=== PATIENT | male | born 1960 | race Caucasian/White ===

== ENCOUNTER 2016-06-14 10:33 | Emergency (ER) | payer BC ==
[~2016-06-14] VITALS: Ht 190.5 cm; Wt 132.9 kg
[~2016-06-14 10:33] MED LIST: CLEOCIN300 MG PO; COUMADIN6 MG PO; DOXYCYCLINE HY100 MG PO; JANUVIA100 MG PO; LISINOPRIL10 MG PO; LISINOPRIL5 MG PO; METFORMIN HCL1000 MG PO; NOVOLOG PE100 UNITS/ SC; ROCEPHIN1 GM/50 ML IV; WARFARIN SODIUM2 MG PO
[2016-06-14 11:33] LABS: CHLORIDE 97 mEq/L (99-109); POTASSIUM 4.2 mEq/L (3.7-5.4); SODIUM 133 mEq/L (136-147)
[2016-06-14 11:35] LABS: GLUCOSE 305 mg/dL (70-99)
[2016-06-14 11:36] LABS: ANION GAP 12 MEQ/L (2-14)
[2016-06-14 11:39] LABS: GFR ESTIMATE (CALCULATED) > 59 mL/min/
[2016-06-14 11:40] LABS: UREA NITROGEN (BUN) 18 mg/dL (9-23)
[2016-06-14] MEDS ORDERED: COUMADIN6 MG PO (11:54)
[2016-06-14] MEDS ORDERED: COUMADIN4 MG PO (11:55)
[2016-06-14] MEDS ORDERED: METFORMIN HCL850 MG PO (12:50)
[2016-06-14] MEDS ORDERED: DOXYCYCLINE HY100 MG PO (12:50)
[2016-06-14 13:17] VITALS: BP 141/80
== END 2016-06-14 13:24 | disposition home or self-care (01) ==
LOC: RME 10:33 → EME 10:33 → RME 13:24
PROVIDERS: Physician Assistant
DX: L03.031 Cellulitis of right toe (principal); E11.65 Type 2 diabetes mellitus with hyperglycemia; I10 Essential (primary) hypertension; Z95.2 Presence of prosthetic heart valve; Z79.01 Long term (current) use of anticoagulants; Z79.84 Long term (current) use of oral hypoglycemic drugs
CPT/HCPCS: 73630; 80048; 85610; 99281; 99284; J7040; J7050

== ENCOUNTER 2016-07-01 16:27 | Inpatient (IN) | payer BC ==
[~2016-07-01] VITALS: Ht 193 cm; Wt 125.3 kg
[~2016-07-01 16:27] MED LIST changes: +COUMADIN4 MG PO; +METFORMIN HCL850 MG PO
[2016-07-01 18:10] VITALS: BP 143/77
[2016-07-01 19:24] VITALS: BP 168/52
[2016-07-01 19:32] LABS: INTER. NORMALIZED RATIO 2.9; PROTHROMBIN TIME 30.3 (9.2-11.2)
[2016-07-01 23:34] VITALS: BP 146/80
[2016-07-02 04:08] VITALS: BP 155/80
[2016-07-02 07:28] LABS: EOSINOPHIL COUNT 0.2 K/uL (0-0.3); HEMATOCRIT 29.4 % (38.0-50.0); IMMATURE GRANULOCYTE (%) 0.2 % (0.0-0.7); LYMPHOCYTE COUNT 1.8 K/uL (1.0-2.8); MCH 26.8 PG (29.0-34.0); MCHC 32.3 G/DL (30.0-36.0); MCV 83.1 FL (86-99); MEAN PLAT.VOLUME 9.5 uM^3 (9.0-12.4); MONOCYTE COUNT 0.9 K/uL (0-0.8); NEUTROPHIL (%) 69.2 % (45-76); NEUTROPHIL COUNT 6.6 K/uL (1.8-6.4); PLATELET COUNT 411 K/uL (156-360); RBC DIS.WIDTH-CV 13.4 % (11.8-14.6); RBC DIS.WIDTH-SD 41.3 % (39-53); RED BLOOD COUNT 3.54 M/uL (4.00-5.50); WHITE BLOOD COUNT 9.5 K/uL (4.1-10.2)
[2016-07-02 07:48] LABS: ANION GAP 7 MEQ/L (2-14); CHLORIDE 101 MEQ/L (99-109); GFR ESTIMATE (CALCULATED) > 59 mL/min/; GLUCOSE 249 mg/dL (70-99); POTASSIUM 4.2 MEQ/L (3.7-5.4); SAMPLE HEMOLYSIS CHECK 0; SAMPLE ICTERIC CHECK 0; SAMPLE LIPEMIA CHECK 0; SODIUM 135 MEQ/L (136-147); UREA NITROGEN (BUN) 12 mg/dL (9-23)
[2016-07-02 07:49] LABS: INTER. NORMALIZED RATIO 2.8; PROTHROMBIN TIME 29.5 (9.2-11.2); PTT 55.9 (25-32)
[2016-07-02 08:20] VITALS: BP 165/86
[2016-07-02 11:05] VITALS: BP 146/82
[2016-07-02 16:10] VITALS: BP 161/89
[2016-07-02 19:30] VITALS: BP 134/75
[2016-07-02 23:00] VITALS: BP 130/74
[2016-07-03 04:47] VITALS: BP 159/84
[2016-07-03 05:12] LABS: EOSINOPHIL (%) 2.1 % (0-5); EOSINOPHIL COUNT 0.2 K/uL (0-0.3); HEMATOCRIT 31.4 % (38.0-50.0); IMMATURE GRANULOCYTE (%) 0.3 % (0.0-0.7); LYMPHOCYTE COUNT 1.9 K/uL (1.0-2.8); MCHC 33.1 G/DL (30.0-36.0); MCV 84.4 FL (86-99); MEAN PLAT.VOLUME 9.8 uM^3 (9.0-12.4); MONOCYTE (%) 8.5 % (3-12); MONOCYTE COUNT 0.8 K/uL (0-0.8); NEUTROPHIL (%) 68.2 % (45-76); NEUTROPHIL COUNT 6.1 K/uL (1.8-6.4); PLATELET COUNT 411 K/uL (156-360); RBC DIS.WIDTH-CV 13.5 % (11.8-14.6); RBC DIS.WIDTH-SD 41.1 % (39-53); RED BLOOD COUNT 3.72 M/uL (4.00-5.50)
[2016-07-03 05:23] LABS: PTT 49.3 (25-32)
[2016-07-03 05:38] LABS: ANION GAP 9 MEQ/L (2-14); CHLORIDE 102 MEQ/L (99-109); GFR ESTIMATE (CALCULATED) > 59 mL/min/; GLUCOSE 235 mg/dL (70-99); SAMPLE HEMOLYSIS CHECK 0; SAMPLE ICTERIC CHECK 0; SAMPLE LIPEMIA CHECK 0; SODIUM 136 MEQ/L (136-147); UREA NITROGEN (BUN) 13 mg/dL (9-23)
[2016-07-03 07:45] VITALS: BP 142/89
[2016-07-03 16:12] VITALS: BP 149/88
[2016-07-03 20:33] VITALS: BP 132/78
[2016-07-03 23:44] VITALS: BP 148/80
[2016-07-04 07:31] LABS: INTER. NORMALIZED RATIO 1.3; PROTHROMBIN TIME 13.3 (9.2-11.2)
[2016-07-04 08:09] VITALS: BP 180/96
[2016-07-04 11:38] VITALS: BP 180/93
[2016-07-04 15:15] LABS: POINT-OF-CARE METER ID UU13113675
[2016-07-04 15:53] VITALS: BP 167/85
[2016-07-04 20:07] LABS: INTER. NORMALIZED RATIO 1.3; PROTHROMBIN TIME 12.9 (9.2-11.2); PTT 31.1 (25-32)
[2016-07-04 20:30] VITALS: BP 144/88
[2016-07-05 00:36] VITALS: BP 144/64
[2016-07-05 02:43] LABS: INTER. NORMALIZED RATIO 1.2; PROTHROMBIN TIME 12.3 (9.2-11.2)
[2016-07-05 02:44] LABS: PTT 47.9 (25-32)
[2016-07-05 04:10] VITALS: BP 152/85
[2016-07-05 07:45] VITALS: BP 162/93
[2016-07-05 08:52] LABS: EOSINOPHIL (%) 0.9 % (0-5); EOSINOPHIL COUNT 0.1 K/uL (0-0.3); HEMATOCRIT 32.4 % (38.0-50.0); IMMATURE GRANULOCYTE (%) 0.2 % (0.0-0.7); LYMPHOCYTE COUNT 1.6 K/uL (1.0-2.8); MCH 27.8 PG (29.0-34.0); MCV 84.2 FL (86-99); MONOCYTE (%) 7.9 % (3-12); MONOCYTE COUNT 0.9 K/uL (0-0.8); NEUTROPHIL (%) 76.8 % (45-76); NEUTROPHIL COUNT 8.9 K/uL (1.8-6.4); PLATELET COUNT 440 K/uL (156-360); RBC DIS.WIDTH-CV 13.6 % (11.8-14.6); RBC DIS.WIDTH-SD 41.3 % (39-53); RED BLOOD COUNT 3.85 M/uL (4.00-5.50); WHITE BLOOD COUNT 11.6 K/uL (4.1-10.2)
[2016-07-05 09:10] LABS: ANION GAP 10 MEQ/L (2-14); CHLORIDE 103 MEQ/L (99-109); GFR ESTIMATE (CALCULATED) > 59 mL/min/; GLUCOSE 226 mg/dL (70-99); POTASSIUM 3.8 MEQ/L (3.7-5.4); SAMPLE HEMOLYSIS CHECK 0; SAMPLE ICTERIC CHECK 0; SAMPLE LIPEMIA CHECK 0; SODIUM 138 MEQ/L (136-147); UREA NITROGEN (BUN) 12 mg/dL (9-23)
[2016-07-05 15:58] LABS: INTER. NORMALIZED RATIO 1.2; PROTHROMBIN TIME 12.7 (9.2-11.2); PTT 41.2 (25-32)
[2016-07-05 16:00] VITALS: BP 158/85
[2016-07-05 22:46] LABS: INTER. NORMALIZED RATIO 1.2; PTT 45.2 (25-32)
[2016-07-06] VITALS: BP 140/69
[2016-07-06 06:06] LABS: INTER. NORMALIZED RATIO 1.3; PROTHROMBIN TIME 12.8 (9.2-11.2)
[2016-07-06 07:50] VITALS: BP 178/88
[2016-07-06 16:00] VITALS: BP 130/81
[2016-07-07] VITALS: BP 154/72
[2016-07-07 06:46] VITALS: BP 156/87
[2016-07-07 08:13] LABS: INTER. NORMALIZED RATIO 1.6; PROTHROMBIN TIME 16.4 (9.2-11.2)
[2016-07-07 14:34] VITALS: BP 166/84
[2016-07-07 19:25] LABS: VANCOMYCIN, TROUGH 48.8 MCG/ML (10-20)
[2016-07-07 20:05] VITALS: BP 156/75
[2016-07-08] VITALS: BP 154/72
[2016-07-08 04:07] VITALS: BP 141/66
[2016-07-08 07:11] LABS: EOSINOPHIL (%) 0.9 % (0-5); EOSINOPHIL COUNT 0.1 K/uL (0-0.3); HEMATOCRIT 29.9 % (38.0-50.0); IMMATURE GRANULOCYTE (%) 0.3 % (0.0-0.7); LYMPHOCYTE COUNT 1.2 K/uL (1.0-2.8); MCH 27.4 PG (29.0-34.0); MCHC 32.4 G/DL (30.0-36.0); MCV 84.5 FL (86-99); MONOCYTE (%) 9.1 % (3-12); NEUTROPHIL (%) 78.2 % (45-76); NEUTROPHIL COUNT 8.2 K/uL (1.8-6.4); PLATELET COUNT 386 K/uL (156-360); RBC DIS.WIDTH-CV 14.4 % (11.8-14.6); RBC DIS.WIDTH-SD 43.8 % (39-53); RED BLOOD COUNT 3.54 M/uL (4.00-5.50); WHITE BLOOD COUNT 10.5 K/uL (4.1-10.2)
[2016-07-08 07:15] LABS: INTER. NORMALIZED RATIO 2.4; PTT 75.3 (25-32)
[2016-07-08 07:26] LABS: PROTHROMBIN TIME 25.2 (9.2-11.2)
[2016-07-08 07:55] LABS: ALKALINE PHOSPHATASE 62 IU/L (3-129); ANION GAP 10 MEQ/L (2-14); CHLORIDE 106 MEQ/L (99-109); GFR ESTIMATE (CALCULATED) 24 mL/min/; GLUCOSE 223 mg/dL (70-99); POTASSIUM 3.4 MEQ/L (3.7-5.4); SAMPLE HEMOLYSIS CHECK 0; SAMPLE ICTERIC CHECK 0; SAMPLE LIPEMIA CHECK 0; SODIUM 141 MEQ/L (136-147); TOTAL BILIRUBIN 0.3 MG/DL (0.0-1.0); UREA NITROGEN (BUN) 21 mg/dL (9-23)
[2016-07-08 08:59] VITALS: BP 158/85
[2016-07-08 11:23] LABS: POINT-OF-CARE USER ID STWLMB34
[2016-07-08 16:57] LABS: POINT-OF-CARE USER ID STWLMB34
[2016-07-08 20:00] VITALS: BP 135/78
[2016-07-08 20:29] LABS: ANION GAP 9 MEQ/L (2-14); CHLORIDE 102 MEQ/L (99-109); POTASSIUM 3.6 MEQ/L (3.7-5.4); SAMPLE HEMOLYSIS CHECK 0; SAMPLE ICTERIC CHECK 0; SAMPLE LIPEMIA CHECK 0; SODIUM 136 MEQ/L (136-147)
[2016-07-08 20:34] LABS: GFR ESTIMATE (CALCULATED) 21 mL/min/; GLUCOSE 208 mg/dL (70-99); UREA NITROGEN (BUN) 23 mg/dL (9-23)
[2016-07-08 23:47] VITALS: BP 168/80
[2016-07-09 04:10] LABS: EOSINOPHIL (%) 1.9 % (0-5); EOSINOPHIL COUNT 0.2 K/uL (0-0.3); HEMATOCRIT 29.2 % (38.0-50.0); IMMATURE GRANULOCYTE (%) 0.2 % (0.0-0.7); IMMATURE GRANULOCYTE COUNT 0.2 K/uL; LYMPHOCYTE COUNT 1.4 K/uL (1.0-2.8); MCH 27.4 PG (29.0-34.0); MCHC 32.9 G/DL (30.0-36.0); MCV 83.4 FL (86-99); MEAN PLAT.VOLUME 9.9 uM^3 (9.0-12.4); MONOCYTE COUNT 0.9 K/uL (0-0.8); NEUTROPHIL (%) 73.8 % (45-76); NEUTROPHIL COUNT 7.1 K/uL (1.8-6.4); PLATELET COUNT 394 K/uL (156-360); RBC DIS.WIDTH-CV 14.1 % (11.8-14.6); RBC DIS.WIDTH-SD 40.8 % (39-53); WHITE BLOOD COUNT 9.6 K/uL (4.1-10.2)
[2016-07-09 04:22] LABS: CHLORIDE 106 mEq/L (99-109); POTASSIUM 3.9 mEq/L (3.7-5.4); SODIUM 138 mEq/L (136-147)
[2016-07-09 04:23] LABS: GLUCOSE 218 mg/dL (70-99); INTER. NORMALIZED RATIO 3.6
[2016-07-09 04:25] LABS: ANION GAP 10 MEQ/L (2-14)
[2016-07-09 04:27] LABS: GFR ESTIMATE (CALCULATED) 19 mL/min/
[2016-07-09 04:28] LABS: PROTHROMBIN TIME 38.2 (9.2-11.2); UREA NITROGEN (BUN) 26 mg/dL (9-23)
[2016-07-09 08:35] VITALS: BP 130/72
[2016-07-09 15:13] VITALS: BP 140/67
[2016-07-10 04:30] VITALS: BP 163/79
[2016-07-10 05:30] LABS: UR CREATININE CONCENTRATION 42.5 MG/DL
[2016-07-10 07:11] LABS: INTER. NORMALIZED RATIO 3.4
[2016-07-10 07:12] LABS: ANION GAP 7 MEQ/L (2-14); CHLORIDE 104 MEQ/L (99-109); GFR ESTIMATE (CALCULATED) 19 mL/min/; GLUCOSE 210 mg/dL (70-99); SAMPLE HEMOLYSIS CHECK 0; SAMPLE ICTERIC CHECK 0; SAMPLE LIPEMIA CHECK 0; SODIUM 136 MEQ/L (136-147); UREA NITROGEN (BUN) 32 mg/dL (9-23)
[2016-07-10 08:00] VITALS: BP 153/84
[2016-07-10 15:00] VITALS: BP 151/81
[2016-07-10 16:38] LABS: POINT-OF-CARE USER ID STWLMB34
[2016-07-10 23:05] VITALS: BP 136/92
[2016-07-11 05:11] LABS: PROTHROMBIN TIME 32.1 (9.2-11.2)
[2016-07-11 05:18] LABS: CHLORIDE 107 mEq/L (99-109); POTASSIUM 4.5 mEq/L (3.7-5.4); SODIUM 138 mEq/L (136-147)
[2016-07-11 05:20] LABS: GLUCOSE 251 mg/dL (70-99)
[2016-07-11 05:22] LABS: ANION GAP 9 MEQ/L (2-14)
[2016-07-11 05:24] LABS: GFR ESTIMATE (CALCULATED) 17 mL/min/
[2016-07-11 05:25] LABS: UREA NITROGEN (BUN) 39 mg/dL (9-23)
[2016-07-11 07:54] VITALS: BP 159/90
[2016-07-11 15:31] LABS: ADD MIUA? NO; BILIRUBIN NEGATIVE; BLOOD NEGATIVE; COLOR STRAW ((YELLOW)); GLUCOSE (STRIP) 150; KETONES NEGATIVE; LEUKOCYTES NEGATIVE; NITRITE NEGATIVE; PROTEIN (STRIP) NEGATIVE; SPECIFIC GRAVITY 1.005 (1.000-1.030); UROBILINOGEN 0.2 MG/DL (0.2-1.0)
[2016-07-11 15:43] VITALS: BP 167/94
[2016-07-11 18:48] LABS: UR CREATININE CONCENTRATION 47.3 MG/DL
[2016-07-11 23:35] VITALS: BP 140/69
[2016-07-12 07:01] LABS: INTER. NORMALIZED RATIO 2.5; PROTHROMBIN TIME 25.8 (9.2-11.2)
[2016-07-12 07:14] LABS: C3 COMPLEMENT 149 MG/DL (58-170); C4 COMPLEMENT 47 MG/DL (10-40)
[2016-07-12 07:17] LABS: ANION GAP 11 MEQ/L (2-14); CHLORIDE 107 MEQ/L (99-109); GFR ESTIMATE (CALCULATED) 18 mL/min/; GLUCOSE 209 mg/dL (70-99); POTASSIUM 4.2 MEQ/L (3.7-5.4); SAMPLE HEMOLYSIS CHECK 0; SAMPLE ICTERIC CHECK 0; SAMPLE LIPEMIA CHECK 0; SODIUM 139 MEQ/L (136-147); UREA NITROGEN (BUN) 40 mg/dL (9-23)
[2016-07-12 08:37] VITALS: BP 171/88
[2016-07-12 12:53] LABS: HEMATOCRIT 32.2 % (38.0-50.0); MCH 26.7 PG (29.0-34.0); MCHC 32.3 G/DL (30.0-36.0); MCV 82.8 FL (86-99); PLATELET COUNT 446 K/uL (156-360); RBC DIS.WIDTH-CV 14.7 % (11.8-14.6); RBC DIS.WIDTH-SD 44.1 % (39-53); RED BLOOD COUNT 3.89 M/uL (4.00-5.50); WHITE BLOOD COUNT 8.5 K/uL (4.1-10.2)
[2016-07-12 17:03] VITALS: BP 160/84
[2016-07-12 23:23] VITALS: BP 166/80
[2016-07-13 08:57] LABS: INTER. NORMALIZED RATIO 1.9; PROTHROMBIN TIME 19.3 (9.2-11.2)
[2016-07-13 09:44] VITALS: BP 163/84
[2016-07-13 09:56] LABS: ANION GAP 9 MEQ/L (2-14); CHLORIDE 105 MEQ/L (99-109); GFR ESTIMATE (CALCULATED) 17 mL/min/; GLUCOSE 239 mg/dL (70-99); POTASSIUM 4.7 MEQ/L (3.7-5.4); SAMPLE HEMOLYSIS CHECK 0; SAMPLE ICTERIC CHECK 0; SAMPLE LIPEMIA CHECK 0; SODIUM 138 MEQ/L (136-147); UREA NITROGEN (BUN) 48 mg/dL (9-23)
[2016-07-13 15:55] VITALS: BP 160/89
[2016-07-14] VITALS: BP 148/85
[2016-07-14 03:26] LABS: BASOPHIL COUNT 0.1 K/uL (0-0.1); EOSINOPHIL (%) 3.9 % (0-5); EOSINOPHIL COUNT 0.3 K/uL (0-0.3); HEMATOCRIT 29.7 % (38.0-50.0); IMMATURE GRANULOCYTE (%) 0.2 % (0.0-0.7); IMMATURE GRANULOCYTE COUNT 0.2 K/uL; LYMPHOCYTE COUNT 1.8 K/uL (1.0-2.8); MCH 27.3 PG (29.0-34.0); MCHC 33.3 G/DL (30.0-36.0); MEAN PLAT.VOLUME 9.5 uM^3 (9.0-12.4); MONOCYTE (%) 8.2 % (3-12); MONOCYTE COUNT 0.7 K/uL (0-0.8); NEUTROPHIL COUNT 5.4 K/uL (1.8-6.4); PLATELET COUNT 447 K/uL (156-360); RBC DIS.WIDTH-CV 14.6 % (11.8-14.6); RBC DIS.WIDTH-SD 41.8 % (39-53); RED BLOOD COUNT 3.62 M/uL (4.00-5.50); WHITE BLOOD COUNT 8.3 K/uL (4.1-10.2)
[2016-07-14 03:39] LABS: INTER. NORMALIZED RATIO 1.6; PROTHROMBIN TIME 16.7 (9.2-11.2)
[2016-07-14 03:41] LABS: CHLORIDE 105 mEq/L (99-109); POTASSIUM 4.7 mEq/L (3.7-5.4)
[2016-07-14 03:42] LABS: SODIUM 137 mEq/L (136-147)
[2016-07-14 03:43] LABS: GLUCOSE 232 mg/dL (70-99)
[2016-07-14 03:45] LABS: ANION GAP 11 MEQ/L (2-14)
[2016-07-14 03:47] LABS: GFR ESTIMATE (CALCULATED) 16 mL/min/
[2016-07-14 03:48] LABS: UREA NITROGEN (BUN) 54 mg/dL (9-23)
[2016-07-14 08:14] VITALS: BP 158/89
[2016-07-14 12:50] VITALS: BP 108/62
[2016-07-14 16:19] VITALS: BP 166/88
[2016-07-14 16:58] LABS: INTER. NORMALIZED RATIO 1.3; PROTHROMBIN TIME 13.7 (9.2-11.2); PTT 43.8 (25-32)
[2016-07-15 01:52] VITALS: BP 153/84
[2016-07-15 03:50] LABS: CHLORIDE 104 mEq/L (99-109)
[2016-07-15 03:51] LABS: POTASSIUM 4.8 mEq/L (3.7-5.4); SODIUM 136 mEq/L (136-147)
[2016-07-15 03:52] LABS: GLUCOSE 223 mg/dL (70-99)
[2016-07-15 03:54] LABS: ANION GAP 9 MEQ/L (2-14)
[2016-07-15 03:56] LABS: GFR ESTIMATE (CALCULATED) 16 mL/min/
[2016-07-15 03:57] LABS: UREA NITROGEN (BUN) 62 mg/dL (9-23)
[2016-07-15 07:15] VITALS: BP 148/81
[2016-07-15 07:47] LABS: INTER. NORMALIZED RATIO 1.2; PROTHROMBIN TIME 12.7 (9.2-11.2); PTT 33.2 (25-32)
[2016-07-15 10:26] VITALS: BP 160/84
[2016-07-15 16:55] VITALS: BP 171/84
[2016-07-15 19:57] VITALS: BP 157/90
[2016-07-15 20:45] LABS: Neutrophil Cytoplasmic Aby Negative (Negative)
[2016-07-15 23:41] VITALS: BP 139/79
[2016-07-16 00:45] VITALS: BP 123/74
[2016-07-16 05:41] LABS: BASOPHIL COUNT 0.1 K/uL (0-0.1); EOSINOPHIL (%) 2.5 % (0-5); EOSINOPHIL COUNT 0.2 K/uL (0-0.3); HEMATOCRIT 32.6 % (38.0-50.0); IMMATURE GRANULOCYTE (%) 0.2 % (0.0-0.7); LYMPHOCYTE COUNT 1.8 K/uL (1.0-2.8); MCH 26.3 PG (29.0-34.0); MCHC 31.6 G/DL (30.0-36.0); MCV 83.2 FL (86-99); MEAN PLAT.VOLUME 9.8 uM^3 (9.0-12.4); MONOCYTE (%) 8.6 % (3-12); MONOCYTE COUNT 0.8 K/uL (0-0.8); NEUTROPHIL (%) 68.7 % (45-76); NEUTROPHIL COUNT 6.2 K/uL (1.8-6.4); PLATELET COUNT 466 K/uL (156-360); RBC DIS.WIDTH-CV 14.7 % (11.8-14.6); RBC DIS.WIDTH-SD 44.6 % (39-53); RED BLOOD COUNT 3.92 M/uL (4.00-5.50)
[2016-07-16 05:50] LABS: INTER. NORMALIZED RATIO 1.2; PROTHROMBIN TIME 12.1 (9.2-11.2)
[2016-07-16 06:11] LABS: ANION GAP 12 MEQ/L (2-14); CHLORIDE 100 MEQ/L (99-109); GFR ESTIMATE (CALCULATED) 17 mL/min/; GLUCOSE 214 mg/dL (70-99); POTASSIUM 4.9 MEQ/L (3.7-5.4); SAMPLE HEMOLYSIS CHECK 0; SAMPLE ICTERIC CHECK 0; SAMPLE LIPEMIA CHECK 0; SODIUM 136 MEQ/L (136-147); UREA NITROGEN (BUN) 61 mg/dL (9-23)
[2016-07-16 08:00] VITALS: BP 170/90
[2016-07-16 09:25] LABS: PTT 28.9 (25-32)
[2016-07-16 16:00] VITALS: BP 147/86
[2016-07-16 17:16] LABS: POINT-OF-CARE USER ID STWLMB34
[2016-07-16 23:45] VITALS: BP 123/74
[2016-07-17 06:48] LABS: HEMATOCRIT 30.2 % (38.0-50.0); MCH 27.5 PG (29.0-34.0); MCHC 32.8 G/DL (30.0-36.0); MCV 83.9 FL (86-99); PLATELET COUNT 460 K/uL (156-360); RBC DIS.WIDTH-SD 46.2 % (39-53)
[2016-07-17 06:56] LABS: INTER. NORMALIZED RATIO 1.1; PROTHROMBIN TIME 11.4 (9.2-11.2); PTT 32.8 (25-32)
[2016-07-17 07:10] LABS: ANION GAP 10 MEQ/L (2-14); CHLORIDE 100 MEQ/L (99-109); GFR ESTIMATE (CALCULATED) 15 mL/min/; GLUCOSE 265 mg/dL (70-99); POTASSIUM 5.3 MEQ/L (3.7-5.4); SAMPLE HEMOLYSIS CHECK 0; SAMPLE ICTERIC CHECK 0; SAMPLE LIPEMIA CHECK 0; SODIUM 134 MEQ/L (136-147); UREA NITROGEN (BUN) 66 mg/dL (9-23)
[2016-07-17 07:44] VITALS: BP 139/82
[2016-07-18] VITALS: BP 132/77
[2016-07-18 07:51] VITALS: BP 145/84
[2016-07-18 09:43] LABS: INTER. NORMALIZED RATIO 1.2; PROTHROMBIN TIME 12.5 (9.2-11.2); PTT 46.8 (25-32)
[2016-07-18 09:50] LABS: EOSINOPHIL (%) 2.5 % (0-5); EOSINOPHIL COUNT 0.2 K/uL (0-0.3); HEMATOCRIT 31.8 % (38.0-50.0); IMMATURE GRANULOCYTE (%) 0.3 % (0.0-0.7); LYMPHOCYTE COUNT 1.6 K/uL (1.0-2.8); MCH 26.1 PG (29.0-34.0); MCHC 31.1 G/DL (30.0-36.0); MCV 83.7 FL (86-99); MONOCYTE (%) 8.2 % (3-12); MONOCYTE COUNT 0.7 K/uL (0-0.8); NEUTROPHIL (%) 68.7 % (45-76); NEUTROPHIL COUNT 5.5 K/uL (1.8-6.4); PLATELET COUNT 513 K/uL (156-360); RBC DIS.WIDTH-CV 15.1 % (11.8-14.6); RBC DIS.WIDTH-SD 46.1 % (39-53)
[2016-07-18 10:00] LABS: ANION GAP 11 MEQ/L (2-14); CHLORIDE 100 MEQ/L (99-109); GFR ESTIMATE (CALCULATED) 17 mL/min/; GLUCOSE 235 mg/dL (70-99); POTASSIUM 4.9 MEQ/L (3.7-5.4); SAMPLE HEMOLYSIS CHECK 0; SAMPLE ICTERIC CHECK 0; SAMPLE LIPEMIA CHECK 0; SODIUM 137 MEQ/L (136-147); UREA NITROGEN (BUN) 63 mg/dL (9-23)
[2016-07-18 15:17] VITALS: BP 145/77
[2016-07-19] VITALS: BP 131/73
[2016-07-19 06:06] LABS: INTER. NORMALIZED RATIO 1.4; PROTHROMBIN TIME 14.2 (9.2-11.2)
[2016-07-19 06:17] LABS: ANION GAP 10 MEQ/L (2-14); CHLORIDE 100 MEQ/L (99-109); GFR ESTIMATE (CALCULATED) 17 mL/min/; GLUCOSE 215 mg/dL (70-99); POTASSIUM 5.2 MEQ/L (3.7-5.4); SAMPLE HEMOLYSIS CHECK 0; SAMPLE ICTERIC CHECK 0; SAMPLE LIPEMIA CHECK 0; SODIUM 135 MEQ/L (136-147); UREA NITROGEN (BUN) 65 mg/dL (9-23)
[2016-07-19 08:05] VITALS: BP 140/75
[2016-07-19 17:25] VITALS: BP 132/70
[2016-07-19 21:29] LABS: POINT-OF-CARE USER ID AHSUCEG
[2016-07-19 23:34] VITALS: BP 144/87
[2016-07-20 02:51] LABS: INTER. NORMALIZED RATIO 1.6; PROTHROMBIN TIME 16.5 (9.2-11.2)
[2016-07-20 02:53] LABS: CHLORIDE 103 mEq/L (99-109); POTASSIUM 4.8 mEq/L (3.7-5.4); SODIUM 138 mEq/L (136-147)
[2016-07-20 03:20] LABS: ANION GAP 14 MEQ/L (2-14)
[2016-07-20 03:22] LABS: GFR ESTIMATE (CALCULATED) 18 mL/min/
[2016-07-20 03:23] LABS: GLUCOSE 199 mg/dL (70-99)
[2016-07-20 03:28] LABS: UREA NITROGEN (BUN) 62 mg/dL (9-23)
[2016-07-20 08:00] VITALS: BP 135/74
[2016-07-20] MEDS ORDERED: TYLENOL REGULA325 MG PO (12:35)
[2016-07-20] MEDS ORDERED: AMLODIPINE BESY10 MG PO (12:36)
[2016-07-20] MEDS ORDERED: LABETALOL HCL100 MG PO (12:36)
[2016-07-20] MEDS ORDERED: NOVOLOG PE100 UNITS/ SC (12:36)
[2016-07-20] MEDS ORDERED: COUMADIN10 MG PO (12:37)
== END 2016-07-20 15:14 | disposition home or self-care (01) | DRG 616 ==
LOC: 2EAST 16:27 → 2EASTP 18:07
PROVIDERS: Family Medicine; Internal Medicine; Internal Medicine Nephrology; Physician Assistant Surgical; Surgery
PROC: 0HDMXZZ Extraction of Right Foot Skin, External Approach (ICD-10-PCS; principal; 2016-07-03)
PROC: 0Y6P0Z0 Detachment at Right 1st Toe, Complete, Open Approach (ICD-10-PCS; 2016-07-04)
PROC: 0TB13ZX Excision of Left Kidney, Percutaneous Approach, Diagnostic (ICD-10-PCS; 2016-07-15)
DX: E11.69 Type 2 diabetes mellitus with other specified complication (principal); A48.0 Gas gangrene; E11.52 Type 2 diabetes mellitus with diabetic peripheral angiopathy with gangrene; M86.171 Other acute osteomyelitis, right ankle and foot; E66.01 Morbid (severe) obesity due to excess calories; Z68.35 Body mass index [BMI] 35.0-35.9, adult; L97.519 Non-pressure chronic ulcer of other part of right foot with unspecified severity; E11.621 Type 2 diabetes mellitus with foot ulcer; E11.65 Type 2 diabetes mellitus with hyperglycemia; L03.031 Cellulitis of right toe; S91.104A Unspecified open wound of right lesser toe(s) without damage to nail, initial encounter; S91.102A Unspecified open wound of left great toe without damage to nail, initial encounter; S91.105A Unspecified open wound of left lesser toe(s) without damage to nail, initial encounter; I48.91 Unspecified atrial fibrillation; E87.6 Hypokalemia; Z95.2 Presence of prosthetic heart valve; E88.09 Other disorders of plasma-protein metabolism, not elsewhere classified; D64.9 Anemia, unspecified; I11.9 Hypertensive heart disease without heart failure; N17.0 Acute kidney failure with tubular necrosis; T36.8X5A Adverse effect of other systemic antibiotics, initial encounter; E11.21 Type 2 diabetes mellitus with diabetic nephropathy
CPT/HCPCS: 76770; 77012; 80048; 80053; 80069; 80202; 81003; 82565; 82570; 82948; 83605; 84156; 84300; 85025; 85027; 85610; 85730; 86021 90; 86038; 86160; 88305; 88305 90; 88311; 88313 90; 88346 90; 88348 90; 89190; 93005; J1815; J2250; J2543; J2795; J3010; J3370; J7040; J7050; S0020

== ENCOUNTER 2016-11-08 12:26 | Inpatient (IN) | payer BC ==
[~2016-11-08] VITALS: Ht 190.5 cm; Wt 122.0 kg
[~2016-11-08 12:26] MED LIST changes: +AMLODIPINE BESY10 MG PO; +COUMADIN10 MG PO; +LABETALOL HCL100 MG PO; +TYLENOL REGULA325 MG PO
[2016-11-08 14:57] LABS: HEMATOCRIT 31.6 % (38.0-50.0); MCV 84.5 FL (86-99); MEAN PLAT.VOLUME 9.4 uM^3 (9.0-12.4); PLATELET COUNT 394 K/uL (156-360); RBC DIS.WIDTH-SD 40.7 % (39-53); RED BLOOD COUNT 3.74 M/uL (4.00-5.50); WHITE BLOOD COUNT 19.4 K/uL (4.1-10.2)
[2016-11-08 15:07] LABS: CHLORIDE 97 mEq/L (99-109)
[2016-11-08 15:08] LABS: POTASSIUM 4.3 mEq/L (3.7-5.4); SODIUM 131 mEq/L (136-147)
[2016-11-08 15:10] LABS: GLUCOSE 255 mg/dL (70-99)
[2016-11-08 15:11] LABS: ANION GAP 8 MEQ/L (2-14)
[2016-11-08 15:12] LABS: TOTAL BILIRUBIN 0.5 mg/dL (0.0-1.0)
[2016-11-08 15:13] LABS: ALKALINE PHOSPHATASE 107 IU/L (3-129); GFR ESTIMATE (CALCULATED) > 59 mL/min/
[2016-11-08 15:15] LABS: UREA NITROGEN (BUN) 22 mg/dL (9-23)
[2016-11-08 17:05] LABS: C-REACTIVE PROTEIN 228.6 MG/L (0-10)
[2016-11-08] MEDS ORDERED: COUMADIN2 MG PO ×2 (17:49→17:50)
[2016-11-08] MEDS ORDERED: NOVOLOG PE100 UNITS/ SC (17:50)
[2016-11-08 19:49] LABS: PROTHROMBIN TIME 20.3 (9.2-11.2)
[2016-11-08 20:32] VITALS: BP 136/78
[2016-11-08 21:00] VITALS: BP 135/78
[2016-11-08 23:45] VITALS: BP 139/66
[2016-11-09 06:53] LABS: BASOPHIL COUNT 0.1 K/uL (0-0.1); EOSINOPHIL (%) 1.9 % (0-5); EOSINOPHIL COUNT 0.3 K/uL (0-0.3); HEMATOCRIT 27.7 % (38.0-50.0); IMMATURE GRANULOCYTE (%) 0.6 % (0.0-0.7); IMMATURE GRANULOCYTE COUNT 0.1 K/uL; INSTRUMENT ABS NEUTROPHIL CT 12.3 K/uL; LYMPHOCYTE COUNT 1.4 K/uL (1.0-2.8); MCH 27.8 PG (29.0-34.0); MCHC 32.5 G/DL (30.0-36.0); MCV 85.5 FL (86-99); MONOCYTE (%) 9.3 % (3-12); MONOCYTE COUNT 1.5 K/uL (0-0.8); NEUTROPHIL (%) 78.6 % (45-76); NEUTROPHIL COUNT 12.3 K/uL (1.8-6.4); PLATELET COUNT 361 K/uL (156-360); RBC DIS.WIDTH-CV 13.2 % (11.8-14.6); RBC DIS.WIDTH-SD 40.8 % (39-53); RED BLOOD COUNT 3.24 M/uL (4.00-5.50); WHITE BLOOD COUNT 15.6 K/uL (4.1-10.2)
[2016-11-09 07:08] LABS: POINT-OF-CARE METER ID UU14149397
[2016-11-09 07:16] LABS: ANION GAP 7 MEQ/L (2-14); CHLORIDE 100 MEQ/L (99-109); GFR ESTIMATE (CALCULATED) > 59 mL/min/; GLUCOSE 233 mg/dL (70-99); POTASSIUM 4.4 MEQ/L (3.7-5.4); SAMPLE HEMOLYSIS CHECK 0; SAMPLE ICTERIC CHECK 0; SAMPLE LIPEMIA CHECK 0; SODIUM 132 MEQ/L (136-147); UREA NITROGEN (BUN) 18 mg/dL (9-23)
[2016-11-09 07:19] LABS: PROTHROMBIN TIME 20.4 (9.2-11.2)
[2016-11-09 07:52] VITALS: BP 177/83
[2016-11-09 08:47] VITALS: BP 152/82
[2016-11-09 11:45] LABS: POINT-OF-CARE METER ID UU14149397
[2016-11-09 12:51] VITALS: BP 124/69
[2016-11-09 16:23] VITALS: BP 145/80
[2016-11-09 21:18] VITALS: BP 105/53
[2016-11-09 21:22] LABS: POINT-OF-CARE METER ID UU14188577
[2016-11-10 06:30] LABS: POINT-OF-CARE METER ID UU14149397
[2016-11-10 06:45] LABS: BASOPHIL COUNT 0.1 K/uL (0-0.1); EOSINOPHIL (%) 2.3 % (0-5); EOSINOPHIL COUNT 0.4 K/uL (0-0.3); HEMATOCRIT 27.7 % (38.0-50.0); IMMATURE GRANULOCYTE (%) 0.6 % (0.0-0.7); IMMATURE GRANULOCYTE COUNT 0.1 K/uL; INSTRUMENT ABS NEUTROPHIL CT 13.4 K/uL; LYMPHOCYTE COUNT 1.3 K/uL (1.0-2.8); MCH 27.4 PG (29.0-34.0); MCHC 32.5 G/DL (30.0-36.0); MCV 84.5 FL (86-99); MEAN PLAT.VOLUME 9.9 uM^3 (9.0-12.4); MONOCYTE (%) 9.2 % (3-12); MONOCYTE COUNT 1.5 K/uL (0-0.8); NEUTROPHIL (%) 79.5 % (45-76); NEUTROPHIL COUNT 13.4 K/uL (1.8-6.4); PLATELET COUNT 385 K/uL (156-360); RBC DIS.WIDTH-SD 40.3 % (39-53); RED BLOOD COUNT 3.28 M/uL (4.00-5.50); WHITE BLOOD COUNT 16.8 K/uL (4.1-10.2)
[2016-11-10 07:13] LABS: INTER. NORMALIZED RATIO 2.3; PROTHROMBIN TIME 23.9 (9.2-11.2)
[2016-11-10 07:17] VITALS: BP 160/78
[2016-11-10 07:18] LABS: Estimated Average Glucose 269 mg/dL (70-123)
[2016-11-10 07:28] LABS: ANION GAP 9 MEQ/L (2-14); CHLORIDE 99 MEQ/L (99-109); GFR ESTIMATE (CALCULATED) > 59 mL/min/; GLUCOSE 216 mg/dL (70-99); POTASSIUM 4.5 MEQ/L (3.7-5.4); SAMPLE HEMOLYSIS CHECK 0; SAMPLE ICTERIC CHECK 0; SAMPLE LIPEMIA CHECK 0; SODIUM 133 MEQ/L (136-147); UREA NITROGEN (BUN) 13 mg/dL (9-23)
[2016-11-10 12:05] LABS: POINT-OF-CARE METER ID UU14188577
[2016-11-10 15:55] VITALS: BP 178/85
[2016-11-10 16:26] LABS: POINT-OF-CARE METER ID UU14188577
[2016-11-10 23:27] VITALS: BP 135/78
[2016-11-11 06:58] LABS: BASOPHIL COUNT 0.1 K/uL (0-0.1); EOSINOPHIL (%) 3.2 % (0-5); EOSINOPHIL COUNT 0.6 K/uL (0-0.3); HEMATOCRIT 27.9 % (38.0-50.0); IMMATURE GRANULOCYTE (%) 0.9 % (0.0-0.7); IMMATURE GRANULOCYTE COUNT 0.2 K/uL; INSTRUMENT ABS NEUTROPHIL CT 12.9 K/uL; LYMPHOCYTE COUNT 1.7 K/uL (1.0-2.8); MCH 28.4 PG (29.0-34.0); MCHC 33.3 G/DL (30.0-36.0); MCV 85.3 FL (86-99); MEAN PLAT.VOLUME 9.8 uM^3 (9.0-12.4); MONOCYTE COUNT 1.5 K/uL (0-0.8); NEUTROPHIL (%) 76.3 % (45-76); NEUTROPHIL COUNT 12.9 K/uL (1.8-6.4); PLATELET COUNT 391 K/uL (156-360); RBC DIS.WIDTH-CV 13.1 % (11.8-14.6); RBC DIS.WIDTH-SD 40.8 % (39-53); RED BLOOD COUNT 3.27 M/uL (4.00-5.50)
[2016-11-11 07:20] LABS: INTER. NORMALIZED RATIO 2.3; PROTHROMBIN TIME 24.4 (9.2-11.2); PTT 48.6 (25-32)
[2016-11-11 07:23] LABS: ANION GAP 7 MEQ/L (2-14); CHLORIDE 99 MEQ/L (99-109); GFR ESTIMATE (CALCULATED) > 59 mL/min/; GLUCOSE 238 mg/dL (70-99); POTASSIUM 4.8 MEQ/L (3.7-5.4); SAMPLE HEMOLYSIS CHECK 0; SAMPLE ICTERIC CHECK 0; SAMPLE LIPEMIA CHECK 0; SODIUM 132 MEQ/L (136-147); UREA NITROGEN (BUN) 13 mg/dL (9-23)
[2016-11-11 07:36] LABS: POINT-OF-CARE METER ID UU14149397
[2016-11-11 08:26] VITALS: BP 176/87
[2016-11-11 16:07] VITALS: BP 142/82
[2016-11-12 00:13] VITALS: BP 164/82
[2016-11-12 06:14] LABS: POINT-OF-CARE METER ID UU14188577
[2016-11-12 06:59] LABS: INTER. NORMALIZED RATIO 1.2; PTT 37.8 (25-32)
[2016-11-12 07:02] LABS: PROTHROMBIN TIME 12.5 (9.2-11.2)
[2016-11-12 08:20] VITALS: BP 162/84
[2016-11-12 15:20] LABS: POINT-OF-CARE METER ID UU13113675; POINT-OF-CARE USER ID 515036437
[2016-11-12 16:40] VITALS: BP 118/82
[2016-11-12 17:01] LABS: POINT-OF-CARE METER ID UU14149397
[2016-11-12 20:19] VITALS: BP 136/84
[2016-11-12 22:28] LABS: POINT-OF-CARE METER ID UU14188577
[2016-11-13 00:03] VITALS: BP 136/80
[2016-11-13 06:51] LABS: POINT-OF-CARE METER ID UU14188577
[2016-11-13 08:01] VITALS: BP 138/82
[2016-11-13 09:04] LABS: HEMATOCRIT 29.7 % (38.0-50.0); MCH 27.6 PG (29.0-34.0); MCHC 31.3 G/DL (30.0-36.0); MCV 88.1 FL (86-99); MEAN PLAT.VOLUME 10.1 uM^3 (9.0-12.4); PLATELET COUNT 451 K/uL (156-360); RBC DIS.WIDTH-CV 13.1 % (11.8-14.6); RBC DIS.WIDTH-SD 42.1 % (39-53); RED BLOOD COUNT 3.37 M/uL (4.00-5.50); WHITE BLOOD COUNT 14.9 K/uL (4.1-10.2)
[2016-11-13 09:24] LABS: ANION GAP 9 MEQ/L (2-14); CHLORIDE 97 MEQ/L (99-109); POTASSIUM 4.4 MEQ/L (3.7-5.4); SAMPLE HEMOLYSIS CHECK 0; SAMPLE ICTERIC CHECK 0; SAMPLE LIPEMIA CHECK 0; SODIUM 132 MEQ/L (136-147); TOTAL BILIRUBIN 0.3 MG/DL (0.0-1.0)
[2016-11-13 09:30] LABS: ALKALINE PHOSPHATASE 90 IU/L (3-129); GFR ESTIMATE (CALCULATED) > 59 mL/min/; GLUCOSE 244 mg/dL (70-99); UREA NITROGEN (BUN) 19 mg/dL (9-23)
[2016-11-13 09:32] LABS: INTER. NORMALIZED RATIO 1.3
[2016-11-13 11:20] LABS: POINT-OF-CARE METER ID UU14188577
[2016-11-13 16:36] VITALS: BP 138/84
[2016-11-13 16:54] LABS: POINT-OF-CARE METER ID UU14149397
[2016-11-13 22:03] LABS: POINT-OF-CARE METER ID UU14188577
[2016-11-13 23:25] VITALS: BP 132/73
[2016-11-14 04:31] LABS: BASOPHIL COUNT 0.1 K/uL (0-0.1); EOSINOPHIL (%) 4.6 % (0-5); EOSINOPHIL COUNT 0.6 K/uL (0-0.3); HEMATOCRIT 28.9 % (38.0-50.0); IMMATURE GRANULOCYTE (%) 2.9 % (0.0-0.7); IMMATURE GRANULOCYTE COUNT 0.4 K/uL; LYMPHOCYTE COUNT 1.6 K/uL (1.0-2.8); MCH 27.2 PG (29.0-34.0); MCHC 32.2 G/DL (30.0-36.0); MCV 84.5 FL (86-99); MEAN PLAT.VOLUME 9.3 uM^3 (9.0-12.4); MONOCYTE COUNT 1.2 K/uL (0-0.8); NEUTROPHIL (%) 70.6 % (45-76); PLATELET COUNT 429 K/uL (156-360); RBC DIS.WIDTH-SD 39.7 % (39-53); RED BLOOD COUNT 3.42 M/uL (4.00-5.50); WHITE BLOOD COUNT 12.8 K/uL (4.1-10.2)
[2016-11-14 04:44] LABS: CHLORIDE 100 mEq/L (99-109); INTER. NORMALIZED RATIO 1.5; POTASSIUM 4.4 mEq/L (3.7-5.4); PROTHROMBIN TIME 15.8 (9.2-11.2); SODIUM 134 mEq/L (136-147)
[2016-11-14 04:46] LABS: GLUCOSE 235 mg/dL (70-99)
[2016-11-14 04:47] LABS: ANION GAP 9 MEQ/L (2-14)
[2016-11-14 04:49] LABS: GFR ESTIMATE (CALCULATED) > 59 mL/min/
[2016-11-14 04:50] LABS: UREA NITROGEN (BUN) 17 mg/dL (9-23)
[2016-11-14 08:12] VITALS: BP 122/64
[2016-11-14 16:26] LABS: POINT-OF-CARE METER ID UU14149397
[2016-11-14 16:28] VITALS: BP 108/78
[2016-11-14 23:29] VITALS: BP 171/82
[2016-11-15 06:47] LABS: BASOPHIL COUNT 0.1 K/uL (0-0.1); EOSINOPHIL (%) 4.3 % (0-5); EOSINOPHIL COUNT 0.6 K/uL (0-0.3); HEMATOCRIT 28.1 % (38.0-50.0); IMMATURE GRANULOCYTE (%) 4.1 % (0.0-0.7); IMMATURE GRANULOCYTE COUNT 0.6 K/uL; INSTRUMENT ABS NEUTROPHIL CT 9.3 K/uL; MCH 28.1 PG (29.0-34.0); MCHC 33.1 G/DL (30.0-36.0); MCV 84.9 FL (86-99); MEAN PLAT.VOLUME 9.4 uM^3 (9.0-12.4); MONOCYTE (%) 8.8 % (3-12); MONOCYTE COUNT 1.2 K/uL (0-0.8); NEUTROPHIL (%) 67.5 % (45-76); NEUTROPHIL COUNT 9.3 K/uL (1.8-6.4); PLATELET COUNT 455 K/uL (156-360); RBC DIS.WIDTH-CV 13.1 % (11.8-14.6); RBC DIS.WIDTH-SD 40.6 % (39-53); RED BLOOD COUNT 3.31 M/uL (4.00-5.50); WHITE BLOOD COUNT 13.7 K/uL (4.1-10.2)
[2016-11-15 07:03] LABS: INTER. NORMALIZED RATIO 1.9; PTT 66.1 (25-32)
[2016-11-15 07:56] VITALS: BP 128/70
[2016-11-15 08:21] LABS: ANION GAP 10 MEQ/L (2-14); CHLORIDE 99 MEQ/L (99-109); GFR ESTIMATE (CALCULATED) > 59 mL/min/; GLUCOSE 223 mg/dL (70-99); POTASSIUM 4.6 MEQ/L (3.7-5.4); SAMPLE HEMOLYSIS CHECK 0; SAMPLE ICTERIC CHECK 0; SAMPLE LIPEMIA CHECK 0; SODIUM 134 MEQ/L (136-147); UREA NITROGEN (BUN) 16 mg/dL (9-23)
[2016-11-15 11:49] LABS: POINT-OF-CARE METER ID UU14188577
[2016-11-15] MEDS ORDERED: LINEZOLID600 MG PO (12:23)
== END 2016-11-15 14:00 | disposition home or self-care (01) | DRG 464 ==
LOC: EXP 12:26 → EME 12:26 → EDOF 18:21 → 3EAST 18:21
PROVIDERS: Family Medicine; Nurse Practitioner Family; Physician Assistant Surgical
DX: M86.171 Other acute osteomyelitis, right ankle and foot (principal); L03.115 Cellulitis of right lower limb; L97.509 Non-pressure chronic ulcer of other part of unspecified foot with unspecified severity; N17.9 Acute kidney failure, unspecified; S92.333A Displaced fracture of third metatarsal bone, unspecified foot, initial encounter for closed fracture; E87.1 Hypo-osmolality and hyponatremia; E11.621 Type 2 diabetes mellitus with foot ulcer; E11.52 Type 2 diabetes mellitus with diabetic peripheral angiopathy with gangrene; E11.40 Type 2 diabetes mellitus with diabetic neuropathy, unspecified; E11.69 Type 2 diabetes mellitus with other specified complication; E11.65 Type 2 diabetes mellitus with hyperglycemia; E11.628 Type 2 diabetes mellitus with other skin complications; E11.22 Type 2 diabetes mellitus with diabetic chronic kidney disease; G57.90 Unspecified mononeuropathy of unspecified lower limb; I25.10 Atherosclerotic heart disease of native coronary artery without angina pectoris; I35.9 Nonrheumatic aortic valve disorder, unspecified; T36.8X5A Adverse effect of other systemic antibiotics, initial encounter; N18.9 Chronic kidney disease, unspecified; L02.91 Cutaneous abscess, unspecified; I12.9 Hypertensive chronic kidney disease with stage 1 through stage 4 chronic kidney disease, or unspecified chronic kidney disease; E66.9 Obesity, unspecified; D64.9 Anemia, unspecified; B95.62 Methicillin resistant Staphylococcus aureus infection as the cause of diseases classified elsewhere; Z79.4 Long term (current) use of insulin; Z79.01 Long term (current) use of anticoagulants; Z95.2 Presence of prosthetic heart valve; Z68.33 Body mass index [BMI] 33.0-33.9, adult; Z86.14 Personal history of Methicillin resistant Staphylococcus aureus infection; Z83.3 Family history of diabetes mellitus
CPT/HCPCS: 71020; 73630; 73720; 80048; 80053; 82948; 83036; 83605; 85025; 85027; 85049; 85610; 85651; 85730; 86140; 87040; 87070; 87075; 87076; 87077; 87147; 87186; 87205; 88305; 99281; 99284; J0690; J0692; J0696; J1815; J2250; J2405; J3010; J3430; J7030; J7050

== ENCOUNTER 2017-01-12 13:46 | Inpatient (IN) | payer BC ==
[~2017-01-12] VITALS: Ht 190.5 cm; Wt 128.1 kg
[~2017-01-12 13:46] MED LIST changes: +COUMADIN2 MG PO; +LINEZOLID600 MG PO
[2017-01-12 16:00] VITALS: BP 140/80
[2017-01-12 20:01] VITALS: BP 138/72
[2017-01-12 20:24] LABS: INTER. NORMALIZED RATIO 2.4; PROTHROMBIN TIME 27.2 SEC (10.2-12.9)
[2017-01-12 20:27] LABS: PTT 36.8 SEC (25-37)
[2017-01-13 07:02] LABS: BASOPHIL COUNT 0.1 K/uL (0-0.1); EOSINOPHIL (%) 3.6 % (0-5); EOSINOPHIL COUNT 0.4 K/uL (0-0.3); HEMATOCRIT 27.2 % (38.0-50.0); IMMATURE GRANULOCYTE (%) 0.5 % (0.0-0.7); IMMATURE GRANULOCYTE COUNT 0.1 K/uL; INSTRUMENT ABS NEUTROPHIL CT 8.5 K/uL; LYMPHOCYTE COUNT 1.7 K/uL (1.0-2.8); MCH 28.3 PG (29.0-34.0); MCHC 32.7 G/DL (30.0-36.0); MCV 86.3 FL (86-99); MEAN PLAT.VOLUME 10.2 uM^3 (9.0-12.4); MONOCYTE (%) 9.1 % (3-12); MONOCYTE COUNT 1.1 K/uL (0-0.8); NEUTROPHIL (%) 71.9 % (45-76); NEUTROPHIL COUNT 8.5 K/uL (1.8-6.4); PLATELET COUNT 402 K/uL (156-360); RBC DIS.WIDTH-CV 18.8 % (11.8-14.6); RED BLOOD COUNT 3.15 M/uL (4.00-5.50); WHITE BLOOD COUNT 11.8 K/uL (4.1-10.2)
[2017-01-13 07:38] VITALS: BP 138/82
[2017-01-13 07:50] LABS: ANION GAP 8 MEQ/L (2-14); CHLORIDE 102 MEQ/L (99-109); GFR ESTIMATE (CALCULATED) > 59 mL/min/; GLUCOSE 228 mg/dL (70-99); POTASSIUM 4.5 MEQ/L (3.7-5.4); SAMPLE HEMOLYSIS CHECK 0; SAMPLE ICTERIC CHECK 0; SAMPLE LIPEMIA CHECK 0; SODIUM 136 MEQ/L (136-147); UREA NITROGEN (BUN) 18 mg/dL (9-23)
[2017-01-13 07:51] LABS: INTER. NORMALIZED RATIO 2.3; PROTHROMBIN TIME 26.7 SEC (10.2-12.9)
[2017-01-13 10:52] VITALS: BP 148/68
[2017-01-13 11:34] LABS: POINT-OF-CARE METER ID UU14188577
[2017-01-13 16:53] VITALS: BP 158/81
[2017-01-13 16:55] LABS: POINT-OF-CARE METER ID UU14188577
[2017-01-13 20:16] VITALS: BP 145/80
[2017-01-13 21:33] LABS: POINT-OF-CARE METER ID UU14188577
[2017-01-14] VITALS (7 sets, daily range): BP systolic 122–140; BP diastolic 68–84
[2017-01-14 04:39] LABS: INTER. NORMALIZED RATIO 1.7; PROTHROMBIN TIME 19.1 SEC (10.2-12.9)
[2017-01-14 06:13] LABS: PTT 36.6 SEC (25-37)
[2017-01-14 07:03] LABS: INTER. NORMALIZED RATIO 1.7; PROTHROMBIN TIME 18.6 SEC (10.2-12.9)
[2017-01-14 07:08] LABS: BASOPHIL COUNT 0.1 K/uL (0-0.1); EOSINOPHIL (%) 3.4 % (0-5); EOSINOPHIL COUNT 0.4 K/uL (0-0.3); HEMATOCRIT 31.6 % (38.0-50.0); IMMATURE GRANULOCYTE (%) 0.6 % (0.0-0.7); IMMATURE GRANULOCYTE COUNT 0.1 K/uL; INSTRUMENT ABS NEUTROPHIL CT 8.6 K/uL; LYMPHOCYTE COUNT 2.1 K/uL (1.0-2.8); MCH 28.8 PG (29.0-34.0); MCHC 33.2 G/DL (30.0-36.0); MCV 86.8 FL (86-99); MEAN PLAT.VOLUME 9.6 uM^3 (9.0-12.4); MONOCYTE (%) 7.5 % (3-12); MONOCYTE COUNT 0.9 K/uL (0-0.8); NEUTROPHIL (%) 70.8 % (45-76); NEUTROPHIL COUNT 8.6 K/uL (1.8-6.4); RBC DIS.WIDTH-CV 18.5 % (11.8-14.6); RBC DIS.WIDTH-SD 58.6 % (39-53); RED BLOOD COUNT 3.64 M/uL (4.00-5.50); WHITE BLOOD COUNT 12.2 K/uL (4.1-10.2)
[2017-01-14 07:09] LABS: PLATELET COUNT 528 K/uL (156-360)
[2017-01-14 07:39] LABS: PTT 121.9 SEC (25-37)
[2017-01-14 08:01] LABS: C-REACTIVE PROTEIN 84.2 MG/L (0-10)
[2017-01-14 10:36] LABS: ERTH.SED.RATE 130 MM/HR (0-20)
[2017-01-14 11:56] LABS: POINT-OF-CARE METER ID UU14117124
[2017-01-14 13:31] LABS: POINT-OF-CARE METER ID UU13113675
[2017-01-14 14:10] LABS: POINT-OF-CARE METER ID UU14117124
[2017-01-14 16:24] LABS: Estimated Average Glucose 206 mg/dL (70-123); HEMOGLOBIN A1c (GLYCOHEMOGLOB) 8.8 % HGB (Below 5.7)
[2017-01-14 21:06] LABS: POINT-OF-CARE METER ID UU14208753
[2017-01-15] VITALS: BP 128/68
[2017-01-15 06:15] LABS: BASOPHIL COUNT 0.1 K/uL (0-0.1); EOSINOPHIL (%) 3.1 % (0-5); EOSINOPHIL COUNT 0.3 K/uL (0-0.3); HEMATOCRIT 30.6 % (38.0-50.0); IMMATURE GRANULOCYTE (%) 0.6 % (0.0-0.7); IMMATURE GRANULOCYTE COUNT 0.1 K/uL; INSTRUMENT ABS NEUTROPHIL CT 7.4 K/uL; LYMPHOCYTE COUNT 1.6 K/uL (1.0-2.8); MCH 27.6 PG (29.0-34.0); MCHC 31.7 G/DL (30.0-36.0); MCV 87.2 FL (86-99); MEAN PLAT.VOLUME 9.4 uM^3 (9.0-12.4); MONOCYTE (%) 8.7 % (3-12); MONOCYTE COUNT 0.9 K/uL (0-0.8); NEUTROPHIL (%) 71.7 % (45-76); NEUTROPHIL COUNT 7.4 K/uL (1.8-6.4); PLATELET COUNT 559 K/uL (156-360); RBC DIS.WIDTH-CV 18.6 % (11.8-14.6); RBC DIS.WIDTH-SD 58.5 % (39-53); RED BLOOD COUNT 3.51 M/uL (4.00-5.50); WHITE BLOOD COUNT 10.3 K/uL (4.1-10.2)
[2017-01-15 06:41] LABS: INTER. NORMALIZED RATIO 1.5; PROTHROMBIN TIME 16.7 SEC (10.2-12.9)
[2017-01-15 06:43] LABS: ANION GAP 9 MEQ/L (2-14); CHLORIDE 100 MEQ/L (99-109); GFR ESTIMATE (CALCULATED) 56 mL/min/; GLUCOSE 176 mg/dL (70-99); PTT 31.3 SEC (25-37); SAMPLE HEMOLYSIS CHECK 0; SAMPLE ICTERIC CHECK 0; SAMPLE LIPEMIA CHECK 0; SODIUM 137 MEQ/L (136-147); UREA NITROGEN (BUN) 20 mg/dL (9-23)
[2017-01-15 07:03] LABS: POINT-OF-CARE METER ID UU14208753
[2017-01-15 07:32] VITALS: BP 120/70
[2017-01-15 11:17] VITALS: BP 120/60
[2017-01-15 12:03] LABS: POINT-OF-CARE METER ID UU14188577
[2017-01-15 15:10] VITALS: BP 120/65
[2017-01-15 17:09] LABS: POINT-OF-CARE METER ID UU14208753
[2017-01-15 20:08] VITALS: BP 132/68
[2017-01-15 21:36] LABS: POINT-OF-CARE METER ID UU14117124
[2017-01-16 05:45] LABS: BASOPHIL COUNT 0.1 K/uL (0-0.1); EOSINOPHIL (%) 3.1 % (0-5); EOSINOPHIL COUNT 0.3 K/uL (0-0.3); HEMATOCRIT 29.6 % (38.0-50.0); IMMATURE GRANULOCYTE (%) 0.8 % (0.0-0.7); IMMATURE GRANULOCYTE COUNT 0.1 K/uL; INSTRUMENT ABS NEUTROPHIL CT 5.5 K/uL; LYMPHOCYTE COUNT 1.9 K/uL (1.0-2.8); MCH 28.4 PG (29.0-34.0); MCHC 33.1 G/DL (30.0-36.0); MCV 85.8 FL (86-99); MEAN PLAT.VOLUME 9.5 uM^3 (9.0-12.4); MONOCYTE (%) 9.3 % (3-12); MONOCYTE COUNT 0.8 K/uL (0-0.8); NEUTROPHIL (%) 63.7 % (45-76); NEUTROPHIL COUNT 5.5 K/uL (1.8-6.4); PLATELET COUNT 525 K/uL (156-360); RBC DIS.WIDTH-CV 18.3 % (11.8-14.6); RBC DIS.WIDTH-SD 57.3 % (39-53); RED BLOOD COUNT 3.45 M/uL (4.00-5.50); WHITE BLOOD COUNT 8.6 K/uL (4.1-10.2)
[2017-01-16 06:03] LABS: INTER. NORMALIZED RATIO 1.8; PROTHROMBIN TIME 20.3 SEC (10.2-12.9)
[2017-01-16 06:13] LABS: ANION GAP 8 MEQ/L (2-14); CHLORIDE 99 MEQ/L (99-109); GFR ESTIMATE (CALCULATED) > 59 mL/min/; GLUCOSE 181 mg/dL (70-99); POTASSIUM 4.5 MEQ/L (3.7-5.4); SAMPLE HEMOLYSIS CHECK 0; SAMPLE ICTERIC CHECK 0; SAMPLE LIPEMIA CHECK 0; SODIUM 133 MEQ/L (136-147); UREA NITROGEN (BUN) 24 mg/dL (9-23)
[2017-01-16 08:07] VITALS: BP 124/84
[2017-01-16 16:36] VITALS: BP 122/76
[2017-01-16 16:51] LABS: POINT-OF-CARE METER ID UU14117124
[2017-01-16 19:49] VITALS: BP 122/64
[2017-01-16 20:48] LABS: POINT-OF-CARE METER ID UU14208753
[2017-01-17 03:38] LABS: INTER. NORMALIZED RATIO 2.4; PROTHROMBIN TIME 27.3 SEC (10.2-12.9)
[2017-01-17 03:46] LABS: PTT 60.2 SEC (25-37)
[2017-01-17 04:33] VITALS: BP 122/70
[2017-01-17 08:37] VITALS: BP 111/78
[2017-01-17 11:32] LABS: POINT-OF-CARE METER ID UU14208753
[2017-01-17] MEDS ORDERED: TYLENOL REGULA325 MG PO (13:32)
[2017-01-17] MEDS ORDERED: OXYCODONE HCL5 MG PO (13:33)
[2017-01-17] MEDS ORDERED: LINEZOLID600 MG PO (13:33)
== END 2017-01-17 14:21 | disposition home or self-care (01) | DRG 504 ==
LOC: 3EAST 13:46 → ENRESERV 13:47 → 3EAST 15:32
PROVIDERS: Family Medicine; Internal Medicine Infectious Disease; Surgery
PROC: 0QBN0ZZ Excision of Right Metatarsal, Open Approach (ICD-10-PCS; principal; 2017-01-14)
DX: M86.9 Osteomyelitis, unspecified (principal); L03.115 Cellulitis of right lower limb; S91.301A Unspecified open wound, right foot, initial encounter; D64.9 Anemia, unspecified; N17.9 Acute kidney failure, unspecified; E11.69 Type 2 diabetes mellitus with other specified complication; E11.42 Type 2 diabetes mellitus with diabetic polyneuropathy; E11.65 Type 2 diabetes mellitus with hyperglycemia; N10 Acute pyelonephritis; L02.611 Cutaneous abscess of right foot; E66.9 Obesity, unspecified; H54.62 Unqualified visual loss, left eye, normal vision right eye; E88.09 Other disorders of plasma-protein metabolism, not elsewhere classified; I10 Essential (primary) hypertension; H35.30 Unspecified macular degeneration; M60.9 Myositis, unspecified; B95.62 Methicillin resistant Staphylococcus aureus infection as the cause of diseases classified elsewhere; E11.628 Type 2 diabetes mellitus with other skin complications; I35.9 Nonrheumatic aortic valve disorder, unspecified; Z68.35 Body mass index [BMI] 35.0-35.9, adult; Z89.421 Acquired absence of other right toe(s); Z95.2 Presence of prosthetic heart valve; Z89.411 Acquired absence of right great toe; Z86.14 Personal history of Methicillin resistant Staphylococcus aureus infection; Z79.4 Long term (current) use of insulin; Z79.01 Long term (current) use of anticoagulants
CPT/HCPCS: 73720; 76937; 80048; 82550; 82948; 83036; 85025; 85027; 85610; 85651; 85730; 86140; 87070; 87075; 87077; 87147; 87186; 87205; A6260; J1335; J1815; J2250; J2405; J2543; J3010; J3430; J7050

== ENCOUNTER 2017-04-04 09:39 | Emergency (ER) | payer BC ==
[~2017-04-04] VITALS: Ht 190.5 cm; Wt 143.8 kg
[~2017-04-04 09:39] MED LIST changes: +OXYCODONE HCL5 MG PO
[2017-04-04] MEDS ORDERED: BACTRIM,SEPT1 TABLET PO (10:04)
[2017-04-04] MEDS ORDERED: XEROFORM PETRO1 EACH TP (10:23)
[2017-04-04 10:52] VITALS: BP 144/82
== END 2017-04-04 11:06 | disposition home or self-care (01) ==
LOC: EME 09:39
DX: E11.621 Type 2 diabetes mellitus with foot ulcer (principal); L97.519 Non-pressure chronic ulcer of other part of right foot with unspecified severity; Z79.4 Long term (current) use of insulin; Z89.411 Acquired absence of right great toe; Z89.421 Acquired absence of other right toe(s); Z86.14 Personal history of Methicillin resistant Staphylococcus aureus infection; Z95.2 Presence of prosthetic heart valve; Z79.01 Long term (current) use of anticoagulants

== ENCOUNTER → 2017-04-30 | Outpatient (CLI) | payer BC ==
[~2017-04-30] MED LIST changes: +BACTRIM,SEPT1 TABLET PO; +XEROFORM PETRO1 EACH TP
== END | disposition home or self-care (01) ==
LOC: PICC 08:47
DX: L02.611 Cutaneous abscess of right foot (principal); T81.4XXA Infection following a procedure, initial encounter
CPT/HCPCS: 76937

== ENCOUNTER 2017-05-12 13:10 | Inpatient (IN) | payer BC ==
[~2017-05-12] VITALS: Ht 191.8 cm; Wt 137.7 kg
[2017-05-12 14:53] LABS: BASOPHIL (%) 0.3 % (0-1); BASOPHIL COUNT 0.1 K/uL (0-0.1); EOSINOPHIL (%) 0.9 % (0-5); EOSINOPHIL COUNT 0.1 K/uL (0-0.3); HEMATOCRIT 26.7 % (38.0-50.0); HEMOGLOBIN 8.5 G/DL (12.5-16.6); IMMATURE GRANULOCYTE (%) 0.6 % (0.0-0.7); LYMPHOCYTE (%) 9.2 % (15-42); LYMPHOCYTE COUNT 1.4 K/uL (1.0-2.8); MCH 27.1 PG (29.0-34.0); MCHC 31.8 G/DL (30.0-36.0); MONOCYTE (%) 6.4 % (3-12); NEUTROPHIL (%) 82.6 % (45-76); NEUTROPHIL COUNT 12.7 K/uL (1.8-6.4); PLATELET COUNT 636 K/uL (156-360); RBC DIS.WIDTH-CV 15.9 % (11.8-14.6); RBC DIS.WIDTH-SD 48.3 % (39-53); RED BLOOD COUNT 3.14 M/uL (4.00-5.50); WHITE BLOOD COUNT 15.4 K/uL (4.1-10.2)
[2017-05-12 15:01] LABS: CHLORIDE 98 mEq/L (99-109); POTASSIUM 4.1 mEq/L (3.7-5.4); SODIUM 135 mEq/L (136-147)
[2017-05-12 15:03] LABS: GLUCOSE 279 mg/dL (70-99)
[2017-05-12 15:07] LABS: CREATININE 1.4 mg/dL (0.6-1.3); GFR ESTIMATE (CALCULATED) 56 mL/min/ (58.99-99999)
[2017-05-12 15:08] LABS: UREA NITROGEN (BUN) 16 mg/dL (9-23)
[2017-05-12 17:34] LABS: INTER. NORMALIZED RATIO 2.6
[2017-05-12] MEDS ORDERED: ROCEPHIN250 MG IM (20:43)
[2017-05-12] MEDS ORDERED: [UNRECOGNIZED DRUG - OTHER] IJ (20:43)
[2017-05-12] MEDS ORDERED: SHORT ACTING INSULIN (20:45)
[2017-05-12 22:08] VITALS: BP 128/69
[2017-05-13 03:42] VITALS: BP 135/76
[2017-05-13 07:00] VITALS: BP 140/78
[2017-05-13 14:45] LABS: INTER. NORMALIZED RATIO 2.2
[2017-05-13 15:05] LABS: ALBUMIN 2.3 G/DL (3.2-4.8); ALKALINE PHOSPHATASE 69 IU/L (3-129); ALT (GPT) 14 IU/L (3-49); AST (GOT) 14 IU/L (2-34); CHLORIDE 99 MEQ/L (99-109); CREATININE 1.1 MG/DL (0.6-1.3); GFR ESTIMATE (CALCULATED) > 59 mL/min/ (58.99-99999); GLUCOSE 200 mg/dL (70-99); SODIUM 131 MEQ/L (136-147); TOTAL BILIRUBIN 0.3 MG/DL (0.0-1.0); TOTAL PROTEIN 5.7 G/DL (6.4-8.3); UREA NITROGEN (BUN) 13 mg/dL (9-23)
[2017-05-13 15:29] LABS: Estimated Average Glucose 266 mg/dL (70-123)
[2017-05-13 15:59] LABS: HEMOGLOBIN A1c (GLYCOHEMOGLOB) 10.9 % HGB (Below 5.7)
[2017-05-13 16:08] VITALS: BP 130/70
[2017-05-13 22:00] VITALS: BP 124/80
[2017-05-14 06:16] LABS: HEMATOCRIT 26.8 % (38.0-50.0); HEMOGLOBIN 8.4 G/DL (12.5-16.6); MCH 26.8 PG (29.0-34.0); MCHC 31.3 G/DL (30.0-36.0); MCV 85.4 FL (86-99); PLATELET COUNT 628 K/uL (156-360); RBC DIS.WIDTH-CV 15.8 % (11.8-14.6); RBC DIS.WIDTH-SD 48.5 % (39-53); RED BLOOD COUNT 3.14 M/uL (4.00-5.50); WHITE BLOOD COUNT 10.1 K/uL (4.1-10.2)
[2017-05-14 06:20] LABS: INTER. NORMALIZED RATIO 1.9
[2017-05-14 06:39] LABS: CHLORIDE 100 MEQ/L (99-109); CREATININE 1.1 MG/DL (0.6-1.3); GFR ESTIMATE (CALCULATED) > 59 mL/min/ (58.99-99999); GLUCOSE 177 mg/dL (70-99); POTASSIUM 4.6 MEQ/L (3.7-5.4); SODIUM 135 MEQ/L (136-147); UREA NITROGEN (BUN) 14 mg/dL (9-23)
[2017-05-14 08:05] VITALS: BP 130/88
[2017-05-14 15:50] VITALS: BP 130/78
[2017-05-14 23:00] VITALS: BP 125/80
[2017-05-15 00:52] LABS: PTT 40.6 SEC (25-37)
[2017-05-15 05:12] LABS: INTER. NORMALIZED RATIO 1.6
[2017-05-15 06:56] LABS: HEMATOCRIT 25.5 % (38.0-50.0); MCH 26.3 PG (29.0-34.0); MCHC 31.4 G/DL (30.0-36.0); MCV 83.9 FL (86-99); PLATELET COUNT 557 K/uL (156-360); RBC DIS.WIDTH-CV 15.7 % (11.8-14.6); RED BLOOD COUNT 3.04 M/uL (4.00-5.50); WHITE BLOOD COUNT 11.4 K/uL (4.1-10.2)
[2017-05-15 06:57] VITALS: BP 132/76
[2017-05-15 11:09] VITALS: BP 137/83
[2017-05-15 15:51] VITALS: BP 144/66
[2017-05-15 19:45] VITALS: BP 130/62
[2017-05-16] VITALS (19 sets, daily range): BP systolic 131–180; BP diastolic 60–110
[2017-05-16 04:37] LABS: INTER. NORMALIZED RATIO 1.4
[2017-05-16 04:39] LABS: PTT 34.8 SEC (25-37)
[2017-05-16 04:49] LABS: BASOPHIL (%) 0.4 % (0-1); EOSINOPHIL (%) 0.4 % (0-5); HEMATOCRIT 20.7 % (38.0-50.0); HEMOGLOBIN 6.5 G/DL (12.5-16.6); IMMATURE GRANULOCYTE (%) 0.4 % (0.0-0.7); LYMPHOCYTE (%) 11.9 % (15-42); LYMPHOCYTE COUNT 0.9 K/uL (1.0-2.8); MCH 26.5 PG (29.0-34.0); MCHC 31.4 G/DL (30.0-36.0); MCV 84.5 FL (86-99); MONOCYTE (%) 11.6 % (3-12); MONOCYTE COUNT 0.9 K/uL (0-0.8); NEUTROPHIL (%) 75.3 % (45-76); NEUTROPHIL COUNT 5.5 K/uL (1.8-6.4); PLATELET COUNT 416 K/uL (156-360); RBC DIS.WIDTH-CV 15.9 % (11.8-14.6); RBC DIS.WIDTH-SD 48.5 % (39-53); RED BLOOD COUNT 2.45 M/uL (4.00-5.50); WHITE BLOOD COUNT 7.3 K/uL (4.1-10.2)
[2017-05-16 04:59] LABS: CHLORIDE 99 mEq/L (99-109); SODIUM 134 mEq/L (136-147)
[2017-05-16 05:01] LABS: GLUCOSE 155 mg/dL (70-99)
[2017-05-16 05:04] LABS: CREATININE 1.1 mg/dL (0.6-1.3); GFR ESTIMATE (CALCULATED) > 59 mL/min/ (58.99-99999)
[2017-05-16 05:05] LABS: UREA NITROGEN (BUN) 10 mg/dL (9-23)
[2017-05-16 13:28] LABS: TROP-I INTERPRETATION NEGATIVE; TROPONIN-I 0.02 ng/mL (0.0-0.30)
[2017-05-16 16:17] LABS: HEMATOCRIT 29.8 % (38.0-50.0); HEMOGLOBIN 9.6 G/DL (12.5-16.6); MCH 27.3 PG (29.0-34.0); MCHC 32.2 G/DL (30.0-36.0); MCV 84.7 FL (86-99); PLATELET COUNT 435 K/uL (156-360); RBC DIS.WIDTH-CV 15.4 % (11.8-14.6); RBC DIS.WIDTH-SD 46.7 % (39-53); RED BLOOD COUNT 3.52 M/uL (4.00-5.50); WHITE BLOOD COUNT 9.4 K/uL (4.1-10.2)
[2017-05-16 20:52] LABS: TROP-I INTERPRETATION NEGATIVE; TROPONIN-I 0.04 ng/mL (0.0-0.30)
[2017-05-17] VITALS (19 sets, daily range): BP systolic 136–177; BP diastolic 80–111
[2017-05-17 04:33] LABS: BASOPHIL (%) 0.2 % (0-1); EOSINOPHIL (%) 0.1 % (0-5); HEMATOCRIT 27.8 % (38.0-50.0); HEMOGLOBIN 9.1 G/DL (12.5-16.6); IMMATURE GRANULOCYTE (%) 0.4 % (0.0-0.7); LYMPHOCYTE (%) 8.7 % (15-42); LYMPHOCYTE COUNT 1.1 K/uL (1.0-2.8); MCH 27.3 PG (29.0-34.0); MCHC 32.7 G/DL (30.0-36.0); MCV 83.5 FL (86-99); MONOCYTE (%) 8.4 % (3-12); NEUTROPHIL (%) 82.2 % (45-76); NEUTROPHIL COUNT 10.2 K/uL (1.8-6.4); PLATELET COUNT 416 K/uL (156-360); RBC DIS.WIDTH-CV 15.3 % (11.8-14.6); RBC DIS.WIDTH-SD 46.2 % (39-53); RED BLOOD COUNT 3.33 M/uL (4.00-5.50); WHITE BLOOD COUNT 12.4 K/uL (4.1-10.2)
[2017-05-17 04:57] LABS: TROP-I INTERPRETATION NEGATIVE; TROPONIN-I 0.08 ng/mL (0.0-0.30)
[2017-05-17 04:58] LABS: CHLORIDE 97 mEq/L (99-109); POTASSIUM 3.8 mEq/L (3.7-5.4); SODIUM 132 mEq/L (136-147)
[2017-05-17 04:59] LABS: GLUCOSE 196 mg/dL (70-99)
[2017-05-17 05:03] LABS: CREATININE 1.2 mg/dL (0.6-1.3); GFR ESTIMATE (CALCULATED) > 59 mL/min/ (58.99-99999)
[2017-05-17 05:04] LABS: UREA NITROGEN (BUN) 13 mg/dL (9-23)
[2017-05-17 05:28] LABS: INTER. NORMALIZED RATIO 1.5
[2017-05-18 00:17] VITALS: BP 144/70
[2017-05-18 04:12] LABS: HEMATOCRIT 28.7 % (38.0-50.0); HEMOGLOBIN 9.4 G/DL (12.5-16.6); MCH 26.9 PG (29.0-34.0); MCHC 32.8 G/DL (30.0-36.0); PLATELET COUNT 418 K/uL (156-360); RBC DIS.WIDTH-SD 44.7 % (39-53); WHITE BLOOD COUNT 9.6 K/uL (4.1-10.2)
[2017-05-18 04:22] LABS: INTER. NORMALIZED RATIO 1.6
[2017-05-18 04:36] LABS: CREATINE KINASE 132 IU/L (1-294)
[2017-05-18 07:42] VITALS: BP 149/80
[2017-05-18 10:01] LABS: ALBUMIN 2.1 g/dL (3.2-4.8); CHLORIDE 95 mEq/L (99-109); POTASSIUM 3.9 mEq/L (3.7-5.4); SODIUM 132 mEq/L (136-147)
[2017-05-18 10:02] LABS: MAGNESIUM 1.5 mg/dL (1.3-2.7)
[2017-05-18 10:04] LABS: GLUCOSE 161 mg/dL (70-99); TOTAL PROTEIN 5.7 g/dL (6.4-8.3)
[2017-05-18 10:06] LABS: TOTAL BILIRUBIN 0.4 mg/dL (0.0-1.0)
[2017-05-18 10:07] LABS: ALKALINE PHOSPHATASE 69 IU/L (3-129); PHOSPHORUS 2.1 mg/dL (2.5-4.9)
[2017-05-18 10:08] LABS: CREATININE 1.2 mg/dL (0.6-1.3); GFR ESTIMATE (CALCULATED) > 59 mL/min/ (58.99-99999)
[2017-05-18 10:09] LABS: AST (GOT) 26 IU/L (2-34); UREA NITROGEN (BUN) 14 mg/dL (9-23)
[2017-05-18 10:10] LABS: ALT (GPT) 14 IU/L (3-49)
[2017-05-18 11:03] VITALS: BP 125/77
[2017-05-18 15:34] VITALS: BP 128/70
[2017-05-18 20:22] VITALS: BP 128/73
[2017-05-18 22:58] VITALS: BP 139/76
[2017-05-19 07:17] LABS: BASOPHIL (%) 0.5 % (0-1); EOSINOPHIL (%) 0 % (0-5); HEMATOCRIT 28.7 % (38.0-50.0); HEMOGLOBIN 9.1 G/DL (12.5-16.6); IMMATURE GRANULOCYTE (%) 0.4 % (0.0-0.7); LYMPHOCYTE (%) 13.4 % (15-42); LYMPHOCYTE COUNT 1.1 K/uL (1.0-2.8); MCH 26.5 PG (29.0-34.0); MCHC 31.7 G/DL (30.0-36.0); MCV 83.7 FL (86-99); MONOCYTE (%) 9.2 % (3-12); MONOCYTE COUNT 0.7 K/uL (0-0.8); NEUTROPHIL (%) 76.5 % (45-76); PLATELET COUNT 428 K/uL (156-360); RBC DIS.WIDTH-CV 15.3 % (11.8-14.6); RBC DIS.WIDTH-SD 46.6 % (39-53); RED BLOOD COUNT 3.43 M/uL (4.00-5.50); WHITE BLOOD COUNT 7.8 K/uL (4.1-10.2)
[2017-05-19 07:30] LABS: INTER. NORMALIZED RATIO 1.8
[2017-05-19 07:33] LABS: PTT 67.2 SEC (25-37)
[2017-05-19 07:48] LABS: CHLORIDE 95 MEQ/L (99-109); GFR ESTIMATE (CALCULATED) > 59 mL/min/ (58.99-99999); GLUCOSE 153 mg/dL (70-99); POTASSIUM 3.9 MEQ/L (3.7-5.4); SODIUM 133 MEQ/L (136-147); UREA NITROGEN (BUN) 20 mg/dL (9-23)
[2017-05-19 08:38] VITALS: BP 146/82; BP 162/87
[2017-05-19 16:25] VITALS: BP 138/93
[2017-05-20 00:31] VITALS: BP 173/87
[2017-05-20 04:53] LABS: HEMOGLOBIN 9.1 G/DL (12.5-16.6); MCH 26.9 PG (29.0-34.0); MCHC 32.5 G/DL (30.0-36.0); MCV 82.8 FL (86-99); PLATELET COUNT 381 K/uL (156-360); RBC DIS.WIDTH-CV 15.1 % (11.8-14.6); RBC DIS.WIDTH-SD 45.6 % (39-53); RED BLOOD COUNT 3.38 M/uL (4.00-5.50); WHITE BLOOD COUNT 11.8 K/uL (4.1-10.2)
[2017-05-20 05:10] LABS: ERTH.SED.RATE 71 MM/HR (0-20)
[2017-05-20 05:23] LABS: INTER. NORMALIZED RATIO 2.2
[2017-05-20 07:30] VITALS: BP 135/69
[2017-05-20 13:40] LABS: INTER. NORMALIZED RATIO 2.2
[2017-05-20 13:43] LABS: PTT 41.5 SEC (25-37)
[2017-05-20 15:52] VITALS: BP 138/82
[2017-05-20 23:25] VITALS: BP 140/69
[2017-05-21 06:27] LABS: INTER. NORMALIZED RATIO 2.2
[2017-05-21 07:59] VITALS: BP 162/88
[2017-05-21 16:00] VITALS: BP 166/86
[2017-05-21 22:48] VITALS: BP 164/84
[2017-05-22 05:31] LABS: HEMATOCRIT 29.8 % (38.0-50.0); HEMOGLOBIN 9.2 G/DL (12.5-16.6); MCH 26.1 PG (29.0-34.0); MCHC 30.9 G/DL (30.0-36.0); MCV 84.4 FL (86-99); PLATELET COUNT 414 K/uL (156-360); RBC DIS.WIDTH-CV 15.4 % (11.8-14.6); RBC DIS.WIDTH-SD 47.1 % (39-53); RED BLOOD COUNT 3.53 M/uL (4.00-5.50); WHITE BLOOD COUNT 5.9 K/uL (4.1-10.2)
[2017-05-22 05:36] LABS: INTER. NORMALIZED RATIO 2.6
[2017-05-22 05:57] LABS: CHLORIDE 98 MEQ/L (99-109); CREATININE 0.9 MG/DL (0.6-1.3); GFR ESTIMATE (CALCULATED) > 59 mL/min/ (58.99-99999); GLUCOSE 177 mg/dL (70-99); POTASSIUM 4.2 MEQ/L (3.7-5.4); SODIUM 137 MEQ/L (136-147); UREA NITROGEN (BUN) 16 mg/dL (9-23)
[2017-05-22 06:55] LABS: BASOPHIL (%) 0.7 % (0-1); EOSINOPHIL (%) 2.9 % (0-5); EOSINOPHIL COUNT 0.2 K/uL (0-0.3); IMMATURE GRANULOCYTE (%) 0.8 % (0.0-0.7); LYMPHOCYTE (%) 23.2 % (15-42); LYMPHOCYTE COUNT 1.4 K/uL (1.0-2.8); MONOCYTE (%) 10.1 % (3-12); MONOCYTE COUNT 0.6 K/uL (0-0.8); NEUTROPHIL (%) 62.3 % (45-76); NEUTROPHIL COUNT 3.7 K/uL (1.8-6.4)
[2017-05-22 08:23] VITALS: BP 158/72
[2017-05-22 11:57] VITALS: BP 138/80
[2017-05-22 16:12] VITALS: BP 136/79
[2017-05-23 03:54] VITALS: BP 143/80
[2017-05-23 06:37] LABS: HEMATOCRIT 30.2 % (38.0-50.0); HEMOGLOBIN 9.6 G/DL (12.5-16.6); MCHC 31.8 G/DL (30.0-36.0); MCV 84.8 FL (86-99); PLATELET COUNT 466 K/uL (156-360); RBC DIS.WIDTH-CV 15.3 % (11.8-14.6); RBC DIS.WIDTH-SD 46.6 % (39-53); RED BLOOD COUNT 3.56 M/uL (4.00-5.50); WHITE BLOOD COUNT 7.9 K/uL (4.1-10.2)
[2017-05-23 06:39] LABS: INTER. NORMALIZED RATIO 2.8
[2017-05-23 06:52] LABS: CHLORIDE 99 MEQ/L (99-109); CREATININE 0.9 MG/DL (0.6-1.3); GFR ESTIMATE (CALCULATED) > 59 mL/min/ (58.99-99999); GLUCOSE 187 mg/dL (70-99); POTASSIUM 4.6 MEQ/L (3.7-5.4); SODIUM 137 MEQ/L (136-147); UREA NITROGEN (BUN) 18 mg/dL (9-23)
[2017-05-23 07:09] LABS: ABS NEUTROPHIL COUNT 6.2; ATYPICAL LYMPHOCYTE 3.6 %; BASOPHILS 0.9 %; EOSINOPHIL ABS CT 0.1; EOSINOPHILS 1.8 % (0-5.0); LYMPHOCYTES 10.9 % (15.0-45.0); MONOCYTES 3.7 % (0-9.0); SEG.NEUTROPHILS 79.1 % (46.0-76.0); SMUDGE CELLS 4.5
[2017-05-23 07:59] VITALS: BP 170/85
[2017-05-23 11:50] VITALS: BP 199/100
[2017-05-23 16:51] VITALS: BP 191/91
[2017-05-23 17:00] VITALS: BP 132/78
[2017-05-24 03:55] VITALS: BP 135/80
[2017-05-24 09:30] VITALS: BP 132/68
[2017-05-24 09:51] LABS: BASOPHIL (%) 0.6 % (0-1); BASOPHIL COUNT 0.1 K/uL (0-0.1); EOSINOPHIL (%) 3.4 % (0-5); EOSINOPHIL COUNT 0.3 K/uL (0-0.3); HEMATOCRIT 33.1 % (38.0-50.0); HEMOGLOBIN 10.5 G/DL (12.5-16.6); IMMATURE GRANULOCYTE (%) 1.8 % (0.0-0.7); LYMPHOCYTE (%) 19.9 % (15-42); LYMPHOCYTE COUNT 1.7 K/uL (1.0-2.8); MCH 26.9 PG (29.0-34.0); MCHC 31.7 G/DL (30.0-36.0); MCV 84.7 FL (86-99); MONOCYTE (%) 7.9 % (3-12); MONOCYTE COUNT 0.7 K/uL (0-0.8); NEUTROPHIL (%) 66.4 % (45-76); NEUTROPHIL COUNT 5.7 K/uL (1.8-6.4); PLATELET COUNT 543 K/uL (156-360); RBC DIS.WIDTH-CV 15.5 % (11.8-14.6); RED BLOOD COUNT 3.91 M/uL (4.00-5.50); WHITE BLOOD COUNT 8.5 K/uL (4.1-10.2)
[2017-05-24 09:59] LABS: INTER. NORMALIZED RATIO 3.3
[2017-05-24 10:16] LABS: CHLORIDE 98 MEQ/L (99-109); CREATININE 0.9 MG/DL (0.6-1.3); GFR ESTIMATE (CALCULATED) > 59 mL/min/ (58.99-99999); GLUCOSE 182 mg/dL (70-99); POTASSIUM 4.8 MEQ/L (3.7-5.4); SODIUM 137 MEQ/L (136-147); UREA NITROGEN (BUN) 17 mg/dL (9-23)
[2017-05-24 12:11] VITALS: BP 134/78
[2017-05-24 16:30] VITALS: BP 140/80
[2017-05-24 22:01] VITALS: BP 128/82
[2017-05-24 23:41] VITALS: BP 118/62
[2017-05-25 05:04] VITALS: BP 124/64
[2017-05-25 05:43] LABS: HEMATOCRIT 31.3 % (38.0-50.0); MCH 26.8 PG (29.0-34.0); MCHC 31.9 G/DL (30.0-36.0); MCV 83.9 FL (86-99); PLATELET COUNT 522 K/uL (156-360); RBC DIS.WIDTH-CV 15.8 % (11.8-14.6); RBC DIS.WIDTH-SD 47.8 % (39-53); RED BLOOD COUNT 3.73 M/uL (4.00-5.50); WHITE BLOOD COUNT 9.1 K/uL (4.1-10.2)
[2017-05-25 06:30] LABS: INTER. NORMALIZED RATIO 3.4
[2017-05-25 08:28] VITALS: BP 148/82
[2017-05-25 12:20] VITALS: BP 128/62
[2017-05-25 16:30] VITALS: BP 130/80
[2017-05-25 21:18] VITALS: BP 138/82
[2017-05-26 08:40] VITALS: BP 150/75
[2017-05-26 22:03] VITALS: BP 160/78
[2017-05-27 07:49] LABS: BASOPHIL COUNT 0.1 K/uL (0-0.1); EOSINOPHIL (%) 3.4 % (0-5); EOSINOPHIL COUNT 0.3 K/uL (0-0.3); HEMOGLOBIN 9.6 G/DL (12.5-16.6); IMMATURE GRANULOCYTE (%) 1.2 % (0.0-0.7); LYMPHOCYTE (%) 19.6 % (15-42); LYMPHOCYTE COUNT 1.6 K/uL (1.0-2.8); MCH 26.2 PG (29.0-34.0); MCV 84.5 FL (86-99); MONOCYTE (%) 9.9 % (3-12); MONOCYTE COUNT 0.8 K/uL (0-0.8); NEUTROPHIL (%) 64.9 % (45-76); NEUTROPHIL COUNT 5.4 K/uL (1.8-6.4); PLATELET COUNT 529 K/uL (156-360); RBC DIS.WIDTH-CV 15.7 % (11.8-14.6); RBC DIS.WIDTH-SD 48.1 % (39-53); RED BLOOD COUNT 3.67 M/uL (4.00-5.50); WHITE BLOOD COUNT 8.3 K/uL (4.1-10.2)
[2017-05-27 07:55] LABS: INTER. NORMALIZED RATIO 2.6
[2017-05-27 08:17] LABS: CHLORIDE 100 MEQ/L (99-109); CREATININE 1.2 MG/DL (0.6-1.3); GFR ESTIMATE (CALCULATED) > 59 mL/min/ (58.99-99999); GLUCOSE 167 mg/dL (70-99); SODIUM 135 MEQ/L (136-147); UREA NITROGEN (BUN) 25 mg/dL (9-23)
[2017-05-27 08:19] VITALS: BP 128/72
[2017-05-27 12:00] VITALS: BP 150/76
[2017-05-27 15:32] VITALS: BP 122/56
[2017-05-27 23:54] VITALS: BP 122/80
[2017-05-28 06:43] VITALS: BP 142/80
[2017-05-28 09:29] LABS: INTER. NORMALIZED RATIO 2.8
[2017-05-28 11:39] VITALS: BP 138/82
[2017-05-28 20:30] VITALS: BP 132/77
[2017-05-29 04:39] VITALS: BP 172/87
[2017-05-29 07:56] LABS: BASOPHIL COUNT 0.1 K/uL (0-0.1); EOSINOPHIL (%) 2.7 % (0-5); EOSINOPHIL COUNT 0.2 K/uL (0-0.3); HEMATOCRIT 30.3 % (38.0-50.0); HEMOGLOBIN 9.3 G/DL (12.5-16.6); IMMATURE GRANULOCYTE (%) 0.9 % (0.0-0.7); LYMPHOCYTE COUNT 1.6 K/uL (1.0-2.8); MCH 26.1 PG (29.0-34.0); MCHC 30.7 G/DL (30.0-36.0); MCV 85.1 FL (86-99); MONOCYTE COUNT 0.7 K/uL (0-0.8); NEUTROPHIL (%) 68.4 % (45-76); NEUTROPHIL COUNT 5.6 K/uL (1.8-6.4); PLATELET COUNT 544 K/uL (156-360); RBC DIS.WIDTH-CV 16.2 % (11.8-14.6); RBC DIS.WIDTH-SD 50.2 % (39-53); RED BLOOD COUNT 3.56 M/uL (4.00-5.50); WHITE BLOOD COUNT 8.1 K/uL (4.1-10.2)
[2017-05-29 08:12] VITALS: BP 174/82
[2017-05-29 08:14] LABS: ALBUMIN 2.7 G/DL (3.2-4.8); ALKALINE PHOSPHATASE 83 IU/L (3-129); ALT (GPT) 13 IU/L (3-49); AST (GOT) 16 IU/L (2-34); CHLORIDE 101 MEQ/L (99-109); GFR ESTIMATE (CALCULATED) > 59 mL/min/ (58.99-99999); GLUCOSE 173 mg/dL (70-99); POTASSIUM 5.1 MEQ/L (3.7-5.4); SODIUM 134 MEQ/L (136-147); TOTAL BILIRUBIN 0.3 MG/DL (0.0-1.0); TOTAL PROTEIN 6.3 G/DL (6.4-8.3); UREA NITROGEN (BUN) 29 mg/dL (9-23)
[2017-05-29 11:00] VITALS: BP 162/68
[2017-05-29 20:10] VITALS: BP 182/88
[2017-05-29 23:58] VITALS: BP 160/82
[2017-05-30 07:54] LABS: INTER. NORMALIZED RATIO 3.4
[2017-05-30 09:26] VITALS: BP 132/68
[2017-05-30 17:06] VITALS: BP 136/76
[2017-05-30 21:27] VITALS: BP 162/80
[2017-05-30 23:35] VITALS: BP 142/83
[2017-05-31 06:47] LABS: INTER. NORMALIZED RATIO 2.9
[2017-05-31 07:40] VITALS: BP 132/68
[2017-05-31 16:02] VITALS: BP 130/60
[2017-05-31 21:24] VITALS: BP 142/80
[2017-06-01 06:02] LABS: BASOPHIL (%) 1.3 % (0-1); BASOPHIL COUNT 0.1 K/uL (0-0.1); EOSINOPHIL (%) 2.8 % (0-5); EOSINOPHIL COUNT 0.2 K/uL (0-0.3); HEMATOCRIT 30.2 % (38.0-50.0); HEMOGLOBIN 9.5 G/DL (12.5-16.6); IMMATURE GRANULOCYTE (%) 0.4 % (0.0-0.7); LYMPHOCYTE (%) 20.2 % (15-42); LYMPHOCYTE COUNT 1.7 K/uL (1.0-2.8); MCH 26.8 PG (29.0-34.0); MCHC 31.5 G/DL (30.0-36.0); MCV 85.1 FL (86-99); MONOCYTE (%) 7.9 % (3-12); MONOCYTE COUNT 0.7 K/uL (0-0.8); NEUTROPHIL (%) 67.4 % (45-76); NEUTROPHIL COUNT 5.6 K/uL (1.8-6.4); PLATELET COUNT 507 K/uL (156-360); RBC DIS.WIDTH-CV 16.1 % (11.8-14.6); RBC DIS.WIDTH-SD 50.1 % (39-53); RED BLOOD COUNT 3.55 M/uL (4.00-5.50); WHITE BLOOD COUNT 8.3 K/uL (4.1-10.2)
[2017-06-01 06:30] LABS: CHLORIDE 101 MEQ/L (99-109); CREATININE 1.2 MG/DL (0.6-1.3); GFR ESTIMATE (CALCULATED) > 59 mL/min/ (58.99-99999); GLUCOSE 163 mg/dL (70-99); POTASSIUM 4.9 MEQ/L (3.7-5.4); SODIUM 134 MEQ/L (136-147); UREA NITROGEN (BUN) 35 mg/dL (9-23)
[2017-06-01 06:43] LABS: INTER. NORMALIZED RATIO 2.2
[2017-06-01 15:48] VITALS: BP 156/62
[2017-06-01 22:43] VITALS: BP 160/82
[2017-06-02 07:24] LABS: INTER. NORMALIZED RATIO 1.7
[2017-06-02 07:49] VITALS: BP 140/70
[2017-06-02] MEDS ORDERED: MUCINEX600 MG PO (13:29)
[2017-06-02] MEDS ORDERED: NOVOLOG PE100 UNITS/ SC (13:30)
[2017-06-02] MEDS ORDERED: COUMADIN6 MG PO (13:31)
[2017-06-02] MEDS ORDERED: FLORASTOR250 MG PO (13:32)
[2017-06-02] MEDS ORDERED: LEVEMIR100 UNIT/2 SC (13:32)
[2017-06-02] MEDS ORDERED: INVANZ1 GM IV (13:32)
== END 2017-06-02 15:29 | disposition home health service (06) | DRG 616 ==
LOC: EME 13:10 → 4WEST 20:09 → 2EAST 20:09 → 3EAST 20:09 → EDOF 20:09 → CANRESERV 20:11 → ENRESERV 20:11 → CANRESERV 20:31 → ENRESERV 21:07 → 2EAST 21:48 → 4WEST 05-16 18:24 → ENRESERV 05-17 15:24 → 3EAST 05-17 17:46
PROVIDERS: Emergency Medicine; Family Medicine; Internal Medicine; Internal Medicine Infectious Disease; Physician Assistant Surgical; Surgery
PROC: 0Y6M0ZD Detachment at Right Foot, Partial 4th Ray, Open Approach (ICD-10-PCS; principal; 2017-05-15)
PROC: 0Y6M0ZB Detachment at Right Foot, Partial 2nd Ray, Open Approach (ICD-10-PCS; principal; 2017-05-15)
PROC: 0Y6M0ZC Detachment at Right Foot, Partial 3rd Ray, Open Approach (ICD-10-PCS; principal; 2017-05-15)
PROC: 30233N1 Transfusion of Nonautologous Red Blood Cells into Peripheral Vein, Percutaneous Approach (ICD-10-PCS; 2017-05-16)
DX: E11.69 Type 2 diabetes mellitus with other specified complication (principal); M86.171 Other acute osteomyelitis, right ankle and foot; M86.671 Other chronic osteomyelitis, right ankle and foot; B96.89 Other specified bacterial agents as the cause of diseases classified elsewhere; J95.821 Acute postprocedural respiratory failure; J95.89 Other postprocedural complications and disorders of respiratory system, not elsewhere classified; J18.9 Pneumonia, unspecified organism; I97.89 Other postprocedural complications and disorders of the circulatory system, not elsewhere classified; I47.1 Supraventricular tachycardia; E11.621 Type 2 diabetes mellitus with foot ulcer; L97.519 Non-pressure chronic ulcer of other part of right foot with unspecified severity; E11.42 Type 2 diabetes mellitus with diabetic polyneuropathy; E11.628 Type 2 diabetes mellitus with other skin complications; L02.611 Cutaneous abscess of right foot; L03.115 Cellulitis of right lower limb; D62 Acute posthemorrhagic anemia; D63.8 Anemia in other chronic diseases classified elsewhere; I10 Essential (primary) hypertension; E11.65 Type 2 diabetes mellitus with hyperglycemia; E11.43 Type 2 diabetes mellitus with diabetic autonomic (poly)neuropathy; K31.84 Gastroparesis; E66.01 Morbid (severe) obesity due to excess calories; Z68.38 Body mass index [BMI] 38.0-38.9, adult; E88.09 Other disorders of plasma-protein metabolism, not elsewhere classified; E87.70 Fluid overload, unspecified; R11.2 Nausea with vomiting, unspecified; T37.3X5A Adverse effect of other antiprotozoal drugs, initial encounter; E78.5 Hyperlipidemia, unspecified; I25.10 Atherosclerotic heart disease of native coronary artery without angina pectoris; I70.0 Atherosclerosis of aorta; I35.9 Nonrheumatic aortic valve disorder, unspecified; J98.11 Atelectasis; Z95.2 Presence of prosthetic heart valve; Z79.01 Long term (current) use of anticoagulants; Z79.4 Long term (current) use of insulin; Z79.2 Long term (current) use of antibiotics; Z91.19 Patient's noncompliance with other medical treatment and regimen; Z16.24 Resistance to multiple antibiotics; Z89.411 Acquired absence of right great toe; Z89.421 Acquired absence of other right toe(s); Z83.3 Family history of diabetes mellitus
CPT/HCPCS: 71010; 71020; 71045; 71275; 80048; 80053; 81003; 82550; 82948; 83036; 83605; 83735; 84100; 84484; 85025; 85027; 85610; 85651; 85730; 86140; 86850; 86900; 86901; 86920; 87040; 87070; 87075; 87076; 87077; 87185; 87186; 87205; 87641; 88305; 88311; 93005; 94010; 94640; 94640 76; 94667; 94668; 94760; 94799; 99202; 99281; 99285; C1753; J0330; J0690; J0692; J0696; J0878; J1335; J1815; J1940; J2405; J3010; J3430; J7030; J7050; J7120; P9016; S0030

== ENCOUNTER 2017-06-11 13:43 | Day surgery (SDC) | payer BC ==
[~2017-06-11] VITALS: Ht 190.5 cm; Wt 121.5 kg
[~2017-06-11 13:43] MED LIST changes: +FLORASTOR250 MG PO; +INVANZ1 GM IV; +LEVEMIR100 UNIT/2 SC; +MUCINEX600 MG PO; +ROCEPHIN250 MG IM; +SHORT ACTING INSULIN; +TOUJEO SOL300 UNIT/1 SC; +[UNRECOGNIZED DRUG - OTHER] IJ
[2017-06-11] MEDS ORDERED: BACTRIM,SEPT1 TABLET PO (14:09)
[2017-06-11 14:24] VITALS: BP 130/68
[2017-06-11 14:33] LABS: INTER. NORMALIZED RATIO 1.5
[2017-06-11 14:35] LABS: PTT 35.2 SEC (25-37)
[2017-06-11 18:20] VITALS: BP 146/70
[2017-06-11 18:58] VITALS: BP 149/67
== END 2017-06-11 19:05 | disposition home or self-care (01) ==
LOC: SDC 13:43
PROVIDERS: Surgery Plastic and Reconstructive Surgery
PROC: 0HRMX74 Replacement of Right Foot Skin with Autologous Tissue Substitute, Partial Thickness, External Approach (ICD-10-PCS; principal; 2017-06-11)
DX: E11.621 Type 2 diabetes mellitus with foot ulcer (principal); L97.518 Non-pressure chronic ulcer of other part of right foot with other specified severity; M86.671 Other chronic osteomyelitis, right ankle and foot; E11.69 Type 2 diabetes mellitus with other specified complication; I10 Essential (primary) hypertension; E11.40 Type 2 diabetes mellitus with diabetic neuropathy, unspecified; I48.92 Unspecified atrial flutter; Z79.01 Long term (current) use of anticoagulants; Z79.4 Long term (current) use of insulin; Z89.431 Acquired absence of right foot; Z95.2 Presence of prosthetic heart valve
CPT/HCPCS: 82948; 85610; 85730; 87641; J0690; J2250; J2405; J3010